=== PATIENT | female | born 1960 | race Caucasian/White ===

== ENCOUNTER 2020-04-19 22:33 | Emergency (ER) | payer OTHER ==
[2020-04-19 22:38] VITALS: BP 184/97; PULSE 84; RESP 18; TEMP 98.5
[2020-04-19] MEDS ORDERED: CEPHALEXIN 500 MG CAP PO STA (23:16)
[2020-04-19] MEDS ORDERED: SULFAMETHOX-TMP 800-160MG 1 EACH TAB PO STA (23:16)
--- NOTE | 2020-04-19 23:22 | ED ---
Skin/Abscess/FB HPI - General Chief complaint: Skin/Abscess/Foreign Body Stated complaint: RT thumb infection Time Seen by Provider: 04/19/20 22:49 Source: patient Mode of arrival: ambulatory Limitations: no limitations - History of Present Illness Initial comments: 60-year-old female presents emergency Department with a chief complaint of an abscess. Patient reports this started about 5 days ago which she believes it was after an abrasion to the thumb. Patient reports the lesion has gradually increased in size with pain is very. Patient reports today she was soaking in warm water noticed there was some weight pressure discharge. She denies any fevers or chills. Reports limited range of motion with flexion of the thumb due to swelling and pain. She reports ecchymosis and erythema. Reports the pain is 5/10 and exacerbated with movement. Sharp pain. alleviated rest. - Related Data Previous Rx's Medication Instructions Recorded Cephalexin [Keflex] 500 mg PO Q6HR #40 cap 04/19/20 Sulfamethox-Tmp 800-160Mg [Bactrim 1 each PO Q12HR #20 tab 04/19/20 Ds] Allergies Allergy/AdvReac Type Severity Reaction Status Date / Time No Known Allergies Allergy Verified 04/19/20 22:38 Review of Systems ROS Statement: Those systems with pertinent positive or pertinent negative responses have been documented in the HPI. ROS Other: All systems not noted in ROS Statement are negative. 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 No s/sx since History of Any Multi-Drug Resistant Organisms: None Reported Past Surgical History: Tonsillectomy Past Psychological History: No Psychological Hx Reported Smoking Status: Never smoker Past Alcohol Use History: None Reported Past Drug Use History: None Reported General Exam Limitations: no limitations General appearance: alert, in no apparent distress Head exam: Present: atraumatic, normocephalic, normal inspection Eye exam: Present: normal appearance, PERRL, EOMI Pupils: Present: normal accommodation ENT exam: Present: normal exam, normal oropharynx, mucous membranes moist Neck exam: Present: normal inspection, full ROM. Absent: tenderness Respiratory exam: Present: normal lung sounds bilaterally. Absent: respiratory distress Cardiovascular Exam: Present: regular rate, normal rhythm, normal heart sounds Extremities exam: Present: normal inspection (Abscess on the dorsal aspect of her right thumb. Swelling and ecchymosis and erythema.), tenderness (Tenderness at the lesion), normal capillary refill, other (Palpable ulnar and radial possible early.). Absent: full ROM (Limited range of motion of flexion of the right thumb due to pain), pedal edema, joint swelling, calf tenderness Back exam: Present: normal inspection, full ROM. Absent: tenderness, CVA tenderness (R), CVA tenderness (L) Neurological exam: Present: alert, oriented X3 Psychiatric exam: Present: normal affect, normal mood Skin exam: Present: warm, dry, intact, normal color Course Vital Signs 04/19/20 22:35 Temperature 98.5 F Pulse Rate 84 Respiratory 18 Rate Blood Pressure 184/97 O2 Sat by Pulse 100 Oximetry Procedures - Incision & Drainage Consent Obtained: verbal consent Indication: Abscess Site: other (Right thumb) Size (cm): 2 Anesthetic Used: lidocaine 1% Amount (mLs): 3 I&D Cleaning Method: Alcohol Wipe Sterile Field Used?: No Scalpel Used: #11 Needle Aspiration Performed?: No Irrigation Performed?: No I&D Drainage Obtained: Pus, Blood Culture Obtained?: No Complications: pain, bleeding Patient Tolerated Procedure: well, no complications Medical Decision Making - Medical Decision Making 60-year-old female presenting to the emergency department with a chief complaint of an abscess. On physical examination, there is an abscess on the dorsal aspect of the right thumb. I offered analgesia, she declined. Due to the location of the abscess and the severity, patient was offered inpatient admission, however she declined and wants to have it drained with an outpatient follow-up. Area was thoroughly cleaned an incision and drainage was performed. She did have improvement range of motion afterwards. She was started on Bactrim and Keflex. Will be discharged on Bactrim and Keflex. I advised her to follow with an clinic specialist. Return primers were thoroughly discussed the patient was an ascending agreeable. She was advised to soak it in warm water. Case discussed with Disposition Clinical Impression: Abscess of thumb, right Disposition: HOME SELF-CARE Condition: Stable Instructions (If sedation given, give patient instructions): Abscess (ED), Abscess Incision and Drainage (ED) Additional Instructions: Please return to the Emergency Department if symptoms worsen or any other concerns.. Follow with clinic specialist. Take prescribed medication as directed. Keep it in warm water. Prescriptions: Sulfamethox-Tmp 800-160Mg [Bactrim Ds] 1 each PO Q12HR #20 tab Cephalexin [Keflex] 500 mg PO Q6HR #40 cap Is patient prescribed a controlled substance at d/c from ED?: No Referrals: None,Stated [Primary Care Provider] - 1-2 days Time of Disposition: 23:22
== END 2020-04-19 23:40 | disposition home or self-care (01) ==
LOC: EC 22:33
DX: L02.511 Cutaneous abscess of right hand (principal)
CPT/HCPCS: 10060; 99282

== ENCOUNTER 2020-04-20 15:22 | Inpatient (IN) | payer OTHER ==
[2020-04-20] MEDS ORDERED: HYDROmorphone 1 MG/ML 1 ML SYRINGE IVP PRN (16:41)
[2020-04-20] MEDS ORDERED: HYDROmorphone 0.5 MG/0.5 ML SYRINGE IVP PRN (16:41)
[2020-04-20] MEDS ORDERED: SENNOSIDES-DOCUSATE SODIUM 1 EACH TAB PO PRN (16:41)
[2020-04-20] MEDS ORDERED: HYDROcodone/APAP 5-325MG 1 EACH TAB PO PRN (16:41)
[2020-04-20] MEDS ORDERED: HYDROmorphone 0.2 MG/1 ML SYRINGE IVP PRN (16:41)
[2020-04-20] MEDS ORDERED: ONDANSETRON 4 MG/2 ML VIAL IVP PRN (16:41)
[2020-04-20] MEDS ORDERED: VANCOMYCIN IV PER PHARMACY 1 EACH MISC MISCELLANE PRN ×2 (16:47→18:32)
[2020-04-20 17:24] LABS: Basophils # (A) 0.1 k/uL (0-0.2); Basophils % (A) 0 %; Eosinophils # (A) 0.2 k/uL (0-0.7); Eosinophils % (A) 2 %; HCT 37.1 % (34.0-46.0); HGB 12.1 gm/dL (11.4-16.0); Lymphocytes % (A) 18 %; MCH 30.7 pg (25.0-35.0); MCHC 32.6 g/dL (31.0-37.0); MCV 94.3 fL (80.0-100.0); Mean Platelet Volume 7.1; Monocytes # (A) 0.6 k/uL (0-1.0); Monocytes % (A) 5 %; Neutrophils # (A) 8.3 k/uL (1.3-7.7); Neutrophils % (A) 74 %; Platelet Count 335 k/uL (150-450); RBC 3.93 m/uL (3.80-5.40); RDW 13.5 % (11.5-15.5); WBC 11.2 k/uL (3.8-10.6)
[2020-04-20 17:30] LABS: Partial Thromboplastin Time 23.1 sec (22.0-30.0)
[2020-04-20 17:41] LABS: ALT 10 U/L (4-34); AST 15 U/L (14-36); African American GFR (CKD) 83 (>60 ml/min/1.73 sqM); Albumin/Globulin Ratio 1.3; Alkaline Phosphatase 95 U/L (38-126); Anion Gap 10 mmol/L; Blood Urea Nitrogen 17 mg/dL (7-17); C Reactive Protein 54.3 mg/L (<10.0); Calcium 9.6 mg/dL (8.4-10.2); Carbon Dioxide 20 mmol/L (22-30); Chloride 108 mmol/L (98-107); Glucose 110 mg/dL (74-99); Non-African American GFR(CKD) 72 (>60 ml/min/1.73 sqM); Potassium 3.6 mmol/L (3.5-5.1); Sodium 138 mmol/L (137-145); Total Bilirubin 0.5 mg/dL (0.2-1.3)
[2020-04-20 18:02] LABS: Erythrocyte Sedimentation Rate 32 mm/hr (0-20)
[2020-04-20] MEDS ORDERED: MELATONIN 3 MG TABLET PO PRN (18:30)
[2020-04-20] MEDS ORDERED: LORazepam 2 MG/ML INJ IV PRN (18:30)
[2020-04-20] MEDS ORDERED: NALOXONE 0.4 MG/ML 1 ML VIAL IV PRN (18:30)
[2020-04-20] MEDS ORDERED: IBUPROFEN 400 MG TAB PO PRN (18:30)
--- NOTE | 2020-04-20 18:43 | P.HPIM ---
History of Present Illness H&P Date: 04/20/20 Chief Complaint: hand pain Patient is a 60-year-old female with tobacco abuse, obesity who initially presented to the ER on 05/16/20 secondary to right thumb cellulitis. At that point in time they didn't I&D in the emergency department. I recommended that she be admitted, however she declined. [facility] and they directed her to the hospital for IV antibiotics. Laboratory analysis shows a mildly elevated white blood cell count is otherwise unremarkable. Patient seen and examined at bedside. Burned right thumb one week ago then started having swelling, also has kitten that bit into finger the same day. St arted getting irritated the next day, but liquid bandaid over the burn. Had increasing swelling and was doing salt water baths. 2 days ago it started getting worse with bad redness and swelling. Before having drainage in the ed was unable to approximate thumb to pinky. Started having pain into wrist. Intermittent tingling and pain in thumb responds to motrin/ excedrine. She reports that since leaving the ER yesterday she started having redness streaking up her right forearm. No fevers or chills, no nausea, no vomiting, no diarrhea. No loss of appetite. + congestion. Review of Systems Pertinent positives and negatives as discussed in HPI, a complete review of systems was performed and all other systems are negative. 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 No s/sx since History of Any Multi-Drug Resistant Organisms: None Reported Past Surgical History: Tonsillectomy Additional Past Surgical History / Comment(s): cyst removedright foot Past Psychological History: No Psychological Hx Reported Smoking Status: Current every day smoker (1 ppd since age 16 ) Past Alcohol Use History: Occasional (1-2 drinks monthly ) - Past Family History Father Family Medical History: Unable to Obtain Mother Family Medical History: Diabetes Mellitus Additional Family Medical History / Comment(s): heart disease, HTN, CKD Medications and Allergies Home Medications Medication Instructions Recorded Confirmed Type Cephalexin [Keflex] 500 mg PO QID 04/20/20 04/20/20 History Ibuprofen [Motrin Ib] 400 mg PO Q8H 04/20/20 04/20/20 History Sulfamethox-Tmp 800-160Mg [Bactrim 1 tab PO BID 04/20/20 04/20/20 History Ds] Allergies Allergy/AdvReac Type Severity Reaction Status Date / Time No Known Allergies Allergy Verified 04/19/20 22:38 Physical Exam Osteopathic Statement: *. No significant issues noted on an osteopathic structural exam other than those noted in the History and Physical/Consult. Vitals: Vital Signs Temp Pulse Resp BP Pulse Ox 04/20/20 17:10 98.1 F 86 16 156/93 98 Intake and Output 04/20/20 04/20/20 04/20/20 06:59 14:59 22:59 Intake Total 236 Balance 236 Intake: Oral 236 Other: # Voids 1 Weight 84 kg General: non toxic, no distress, appears at stated age Derm: warm, dry Head: atraumatic, normocephalic, symmetric Eyes: EOMI, no lid lag, anicteric sclera, pupils equal round reactive to light ENT: Nose and ears atraumatic, no thrush, no pharyngeal erythema Neck: No thyromegaly, no cervical lymphadenopathy, trachea midline, supple Mouth: no lip lesion, mucus membranes moist Cardiovascular: S1S2 reg, no murmur, positive posterior tibial pulse bilateral, no edema, capillary refill less than 2 seconds Lungs: clear to ascultation bilateral, no ronchi, no rales, no wheeze, no accessory muscle use Abdominal: soft, nontender to palpation, no guarding, no appreciable organomegaly, normal bowel sounds Ext: no gross muscle atrophy, muscle strength muscle strength 5 out of 5 in all 4 extremities, no contractures Neuro: CN II-XI grossly intact, light touch intact all 4 extremities, finger to nose within normal limits, Psych: Alert, oriented, appropriate affect Results CBC & Chem 7: 04/20/20 17:04 04/20/20 17:04 Labs: Abnormal Lab Results - Last 24 Hours (Table) 04/20/20 04/20/20 Range/Units 17:04 17:04 WBC 11.2 H (3.8-10.6) k/uL Neutrophils # 8.3 H (1.3-7.7) k/uL ESR 32 H (0-20) mm/hr Chloride 108 H (98-107) mmol/L Carbon Dioxide 20 L (22-30) mmol/L Glucose 110 H (74-99) mg/dL C-Reactive Protein 54.3 H (<10.0) mg/L Thrombosis Risk Factor Assmnt - DVT/VTE Prophylaxis DVT/VTE Prophylaxis: Pharmacologic Prophylaxis ordered - Choose All That Apply Each Factor Represents 1 point: Age 41-60 years, Minor surgery planned Thrombosis Risk Factor Assessment Total Risk Factor Score: 2 Thrombosis Risk Factor Assessment Level: Low Risk Assessment and Plan Assessment: Right thumb cellulitis with lymphangitis likely related to cat bite -Vanco, Unasyn -IV fluids -Await infectious disease recommendations -Blood cultures -Orthopedic recommendations -Check hemoglobin A1c Tobacco abuse -Cessation -Nicotine replacement Overweight with BMI of 29 -Structured weight loss Social stressors -Lack of medical insurance The patient is admitted with an anticipated greater than 2 midnight stay for evaluation of cellulitis with lymphangitis. Thank you for allowing us to participate in the care of this pleasant patient. Do not hesitate to contact us with questions. Someone can be reached from the [facility] hospitalist group all hours of the day at [phone] or via perfect serve.
[2020-04-20] MEDS: SODIUM CHLORIDE 0.9% 1,000 ML IV SCH (19:22)
[2020-04-20] MEDS ORDERED: VANCOMYCIN 1,500 MG in SODIUM CHLORIDE 0.9% 250 ML IVPB ONE (20:00)
[2020-04-20] MEDS: AMPICILLIN-SULBACTAM 3 GM in SODIUM CHLORIDE 0.9% 100 ML IVPB SCH (23:10)
[2020-04-21 03:32] LABS: INR 0.9 (<1.2); Prothrombin Time 9.7 sec (9.0-12.0)
[2020-04-21] MEDS: AMPICILLIN-SULBACTAM 3 GM in SODIUM CHLORIDE 0.9% 100 ML IVPB SCH ×3 (05:32→18:13)
[2020-04-21 07:11] LABS: ALT 8 U/L (4-34); AST 13 U/L (14-36); African American GFR (CKD) >90 (>60 ml/min/1.73 sqM); Albumin 3.3 g/dL (3.5-5.0); Albumin/Globulin Ratio 1.2; Alkaline Phosphatase 83 U/L (38-126); Anion Gap 4 mmol/L; Blood Urea Nitrogen 12 mg/dL (7-17); Calcium 9.1 mg/dL (8.4-10.2); Carbon Dioxide 23 mmol/L (22-30); Chloride 112 mmol/L (98-107); Globulin 2.7 g/dL; Glucose 96 mg/dL (74-99); Magnesium 1.9 mg/dL (1.6-2.3); Non-African American GFR(CKD) 84 (>60 ml/min/1.73 sqM); Potassium 4.1 mmol/L (3.5-5.1); Sodium 139 mmol/L (137-145); Total Bilirubin 0.6 mg/dL (0.2-1.3)
[2020-04-21] MEDS: VANCOMYCIN 1,500 MG in SODIUM CHLORIDE 0.9% 250 ML IVPB SCH ×2 (07:45→21:10)
[2020-04-21] MEDS: NICOTINE 21MG/24HR PATCH TRANSDERM SCH (07:46)
[2020-04-21] MEDS: ACETAMINOPHEN TAB 325 MG TAB PO PRN ×2 (07:54→21:16)
--- NOTE | 2020-04-21 08:41 | P.HPOR ---
History of Present Illness H&P Date: 04/21/20 Chief Complaint: Right thumb infection. This is a 60-year-old female who is seen in our office on 04/20/2020 with history of a small pimple-like lesion on her thumb which began a week ago. She states that she squeezed it and did express some pus from the area. She then put liquid Band-Aid over the area and went to work. Her thumb has gotten progressively worse over the past week. She was seen in the emergency department Friday evening, 04/19/2020. They advised the patient that she should be admitted for IV antibiotics and she declined at that time. She presented to our office on , 04/20/2020 with worsening of her symptoms. She denies recent fever or chills. She had begun noticing red streaking up her arm in the past 24 hours. She was placed on Bactrim and Keflex in the emergency department. 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 No s/sx since History of Any Multi-Drug Resistant Organisms: None Reported Past Surgical History: Tonsillectomy Additional Past Surgical History / Comment(s): cyst removedright foot Past Psychological History: No Psychological Hx Reported Smoking Status: Current every day smoker (1 ppd since age 16 ) Past Alcohol Use History: Occasional (1-2 drinks monthly ) - Past Family History Father Family Medical History: Unable to Obtain Mother Family Medical History: Diabetes Mellitus Additional Family Medical History / Comment(s): heart disease, HTN, CKD Medications and Allergies Home Medications Medication Instructions Recorded Confirmed Type Cephalexin [Keflex] 500 mg PO QID 04/20/20 04/20/20 History Ibuprofen [Motrin Ib] 400 mg PO Q8H 04/20/20 04/20/20 History Sulfamethox-Tmp 800-160Mg [Bactrim 1 tab PO BID 04/20/20 04/20/20 History Ds] Allergies Allergy/AdvReac Type Severity Reaction Status Date / Time No Known Allergies Allergy Verified 04/19/20 22:38 Physical Examination This is a 60-year-old female in no acute distress. She is alert and oriented 3. Exam of the right upper extremity reveals a large abscess to the dorsal aspect of the right thumb. There is active purulent drainage from the wound. She has limited motion of the thumb secondary to pain and swelling. There is some erythema streaking up the arm. She has fairly good wrist, elbow and shoulder motion without difficulty or pain. Neurovascular status the upper extremity is intact. Results X-rays of the hand taken in the office show no acute fracture or bony abnormality. No bony erosion noted. - Labs Labs: Abnormal Lab Results - Last 24 Hours (Table) 04/20/20 04/20/20 04/21/20 Range/Units 17:04 17: 06:27 WBC 11.2 H (3.8-10.6) k/uL Neutrophils # 8.3 H (1.3-7.7) k/uL ESR 32 H (0-20) mm/hr Chloride 108 H 112 H (98-107) mmol/L Carbon Dioxide 20 L (22-30) mmol/L Glucose 110 H (74-99) mg/dL AST 13 L (14-36) U/L C-Reactive Protein 54.3 H (<10.0) mg/L Total Protein 6.0 L (6.3-8.2) g/dL Albumin 3.3 L (3.5-5.0) g/dL H & H 04/20/20 Range/Units 17:04 Hgb 12.1 (11.4-16.0) gm/dL Hct 37.1 (34.0-46.0) % Coagulation 04/20/20 Range/Units 17:04 INR 0.9 (<1.2) Result Diagrams: 04/20/20 17:04/21/20 06:27 Assessment and Plan (1) Acute lymphangitis of right upper extremity Current Visit: Yes Status: Acute Code(s): L03.123 - ACUTE LYMPHANGITIS OF RIGHT UPPER LIMB SNOMED Code(s): 7954225 (2) Abscess of right thumb Current Visit: Yes Status: Acute Code(s): L02.511 - CUTANEOUS ABSCESS OF RIGHT HAND SNOMED Code(s): 32721597687656986 Plan: The clinical and x-ray findings are discussed with the patient. She is strongly encouraged to be admitted to the hospital for IV antibiotics and surgical debridement of the wound. The patient was hesitant secondary to her lack of health insurance but eventually did consent to inpatient admission. We are planning irrigation and debridement today and we'll take deep cultures. I've consult it infectious disease for antibiotic and wound management. She most likely will need wound care center appointments weekly postoperatively.
[2020-04-21 08:55] LABS: HCT 34.2 % (37.2-46.3); HGB 11.1 g/dL (12.0-15.0); MCH 31.4 pg (27.0-32.0); MCHC 32.5 g/dL (32.0-37.0); MCV 96.9 fL (80.0-97.0); Platelet Count 279 X 10*3/uL (140-440); RBC 3.53 X 10*6/uL (4.10-5.20); RDW 13.7 % (11.5-14.5); WBC 9.16 X 10*3/uL (4.50-10.00)
[2020-04-21] MEDS: SODIUM CHLORIDE 0.9% 1,000 ML IV SCH ×2 (10:45→21:10)
[2020-04-21] MEDS ORDERED: LACTATED RINGERS 1,000 ML IV ONE (10:57)
[2020-04-21] MEDS ORDERED: ONDANSETRON 4 MG/2 ML VIAL IVP ONE (10:58)
[2020-04-21] MEDS ORDERED: DEXAMETHASONE SOD PHOSPHATE 4 MG/ML 1 ML VIAL IVP ONE (10:58)
[2020-04-21] MEDS ORDERED: fentaNYL (PF) 50 MCG/ML 2 ML AMP ONE (11:30)
[2020-04-21] MEDS ORDERED: MIDAZOLAM 2 MG/2 ML VIAL ONE (11:30)
[2020-04-21] MEDS ORDERED: PROPOFOL 10 MG/ML 20 ML VIAL IV ONE (11:30)
[2020-04-21] MEDS ORDERED: LIDOCAINE 1% INJ 10MG/ML (20 ML MDV) ONE (11:30)
[2020-04-21] MEDS ORDERED: TEMAZEPAM 15 MG CAP PO PRN (12:31)
[2020-04-21] MEDS ORDERED: diphenhydrAMINE 25 MG CAP PO PRN (12:31)
[2020-04-21] MEDS: LACTATED RINGERS 1,000 ML IV SCH ×2 (14:41→21:02)
[2020-04-21 15:22] LABS: Hemoglobin A1C 5.5 % (4.0-6.0)
--- NOTE | 2020-04-21 16:10 | P.PN ---
Subjective Progress Note Date: 04/21/20 Principal diagnosis: right thumb infection Patient is a 60-year-old female with tobacco abuse, obesity who initially presented to the ER on 05/16/20 secondary to right thumb cellulitis. At that point in time they didn't I&D in the emergency department. I recommended that she be admitted, however she declined. [facility] today and they directed her to the hospital for IV antibiotics. Laboratory analysis shows a mildly elevated white blood cell count is otherwise unremarkable. She was started on Unasyn. She underwent operative I&D 04/21/20. Patient seen and examined at bedside. She denies any chest pain, shortness of breath, nausea, or diarrhea. She is having some throbbing and tingling in her right hand which has just been dressed. She has not wanted a nicotine patch or gum at this point in time but knows it is available. General: non toxic, no distress, appears at stated age Derm: warm, dry Head: atraumatic, normocephalic, symmetric Eyes: EOMI, no lid lag, anicteric sclera Mouth: no lip lesion, mucus membranes moist, poor dentition Cardiovascular: S1S2 reg, no murmur, positive posterior tibial pulse bilateral, Lungs: CTA bilateral, no rhonchi, no rales , no accessory muscle use Abdominal: soft, nontender to palpation, no guarding, no appreciable organomegaly Ext: no gross muscle atrophy, no edema, no contractures, dressing in place over right thumb, erythematous tracking along veins and right forearm has resolved. Neuro: CN II-XI grossly intact, no focal neuro deficits Psych: Alert, oriented, appropriate affect Right thumb cellulitis with lymphangitis likely related to cat bite, likely polymicrobial infection - s/p operative I and D -Vanco, Unasyn -IV fluids -Await infectious disease recommendations -Blood cultures pending -Orthopedic recommendations -hemoglobin A1c 5.5 Tobacco abuse -Cessation -Nicotine replacement Overweight with BMI of 29 -Structured weight loss Social stressors -Lack of medical insurance Thank you for allowing us to participate in the care of this pleasant patient. Do not hesitate to contact us with questions. Someone can be reached from the [facility] hospitalist group all hours of the day at [phone] or via perfect serve. Objective - Vital Signs Vital signs: Vital Signs Temp 98.3 F 04/21/20 14:18 Pulse 77 04/21/20 14:42 Resp 16 04/21/20 14:42 BP 137/80 04/21/20 14:42 Pulse Ox 95 04/21/20 14:18 Intake & Output 04/20/20 04/21/20 04/21/20 18:59 06:59 18:59 Intake Total 236 0 736 Output Total 10 Balance 236 0 726 Weight 84 kg Intake: IV 500 Oral 236 0 236 Output: Estimated Blood Loss 10 Other: Voiding Method Toilet # Voids 1 1 - Labs CBC & Chem 7: 04/21/20 06:27 04/21/20 06:27 Labs: Abnormal Lab Results - Last 24 Hours (Table) 04/20/20 04/20/20 04/21/20 Range/Units 17:04 17:04 06:27 WBC 11.2 H (3.8-10.6) k/uL RBC 3.53 L (4.10-5.20) X 10*6/uL Hgb 11.1 L (12.0-15.0) g/dL Hct 34.2 L (37.2-46.3) % Neutrophils # 8.3 H (1.3-7.7) k/uL ESR 32 H (0-20) mm/hr Chloride 108 H (98-107) mmol/L Carbon Dioxide 20 L (22-30) mmol/L Glucose 110 H (74-99) mg/dL AST (14-36) U/L C-Reactive Protein 54.3 H (<10.0) mg/L Total Protein (6.3-8.2) g/dL Albumin (3.5-5.0) g/dL 04/21/20 Range/Units 06:27 WBC (3.8-10.6) k/uL RBC (4.10-5.20) X 10*6/uL Hgb (12.0-15.0) g/dL Hct (37.2-46.3) % Neutrophils # (1.3-7.7) k/uL ESR (0-20) mm/hr Chloride 112 H (98-107) mmol/L Carbon Dioxide (22-30) mmol/L Glucose (74-99) mg/dL AST 13 L (14-36) U/L C-Reactive Protein (<10.0) mg/L Total Protein 6.0 L (6.3-8.2) g/dL Albumin 3.3 L (3.5-5.0) g/dL
--- NOTE | 2020-04-21 21:32 | CONS ---
CONSULTATION DATE OF SERVICE: 04/21/2020 REASON FOR CONSULTATION: Right thumb abscess. HISTORY OF PRESENT ILLNESS: The patient is a 60-year-old female who apparently started noticed having pain, swelling and redness to right thumb area a few days ago. The patient denies having any history of any trauma or cut to the area. The patient became more swollen red and painful. The patient described the pain to be more of a throbbing intensity almost 7 to 8 out of 10. No radiation. The patient was seen in the ER on 04/19/2020 in this patient who is status post I and D of the right thumb and the patient did not have any cultures done by the ER physician. Patient subsequently [facility]. Patient was evaluated by Dr. Moraes and the patient was directed to the hospital for admission and IV drainage and IV antibiotic therapy. The patient was started on Unasyn and vancomycin. Infectious Disease was consulted. The patient was taken to the OR this morning and is status post I and D of the right thumb abscess. Culture has been obtained which is currently pending. REVIEW OF SYSTEMS: Positive points have been mentioned in HPI. Rest of systems are negative. PAST MEDICAL HISTORY: Significant for but no other medical illnesses. PAST SURGICAL HISTORY: Tonsillectomy, cyst removed from the right foot. SOCIAL HISTORY: Current everyday smoker. Drinks 1-2 drinks monthly. Denies any IV drug use. FAMILY HISTORY: Mother history of diabetes mellitus. ALLERGIES: No known drug allergies. MEDICATIONS: The patient is currently on Tylenol, [place], Unasyn, Benadryl, Dilaudid, Motrin and Ativan, melatonin, vancomycin, pharmacy to dose, nicotine patch, Zofran, Restoril. PHYSICAL EXAMINATION: Blood pressure 137/80 with a pulse of 77. Temperature 98.3. She is 95% on room air. General description is a middle-aged female lying in bed in no distress. No tachypnea or accessory muscles of respiration use. HEENT: Examination shows slight pallor. No scleral icterus. Oral mucous membranes dry. NECK: Trachea central. No thyromegaly. LUNGS: Unlabored breathing. Clear to auscultation anteriorly. HEART S1, S2. Regular rate and rhythm. ABDOMEN: Soft. No tenderness. Right thumb is currently dressed up. No obvious drainage on the dressing. EXTREMITIES: No edema of the feet. LABS: Hemoglobin is 11.8, white count 11.2, creatinine 0.7. Electrolytes normal. Cultures currently pending. CRP 54.3. DIAGNOSTIC IMPRESSION AND PLAN: Patient with right thumb abscess in this patient who is status post drainage of the abscess. Cultures are currently pending. We will need to cover for any gram-positive with likely pathogen less likely Gram-negative infection. PLAN: 1. Vancomycin, pharmacy to dose target of 15, to continue. 2. Will wait for the culture to finalize to determine discharge antibiotics. 3. Continue supportive care. MMODL / IJN: [id number] /
[2020-04-22] MEDS: AMPICILLIN-SULBACTAM 3 GM in SODIUM CHLORIDE 0.9% 100 ML IVPB SCH ×4 (00:06→16:57)
--- NOTE | 2020-04-22 08:46 | P.PN ---
Subjective Progress Note Date: 04/22/20 Principal diagnosis: Status post right thumb I&D This is a 60 year-old female post right thumb I&D. This is post-op day 1. The patient was evaluated at the bedside today. The patient denies nausea, vomiting, abdominal pain, shortness of breath, and chest pain this morning. She states her pain is controlled at this time. She is currently receiving vanco mycin and Unasyn. Intraoperative cultures are pending at this time. Objective - Vital Signs Vital signs: Vital Signs Temp 98.1 F 04/22/20 08:00 Pulse 67 04/22/20 08:00 Resp 18 04/22/20 08:00 BP 162/80 04/22/20 08:00 Pulse Ox 98 04/22/20 08:00 Intake & Output 04/21/20 04/22/20 04/22/20 18:59 06:59 18:59 Intake Total 972 Output Total 10 Balance 962 Intake: IV 500 Oral 472 Output: Estimated Blood Loss 10 Other: Voiding Method Toilet # Voids 1 2 - Exam The patient does not appear in acute distress. Alert and orientated x3. Dressing is clean, dry, and intact. Good finger motion without difficulty. Sensation and circulatory status is intact. - Labs CBC & Chem 7: 04/21/20 06:27 04/21/20 06:27 Labs: Abnormal Lab Results - Last 24 Hours (Table) 04/21/20 Range/Units 06:27 RBC 3.53 L (4.10-5.20) X 10*6/uL Hgb 11.1 L (12.0-15.0) g/dL Hct 34.2 L (37.2-46.3) % Microbiology - Last 24 Hours (Table) 04/21/20 12:06 Gram Stain - Preliminary Finger - Right First Wound Culture - Preliminary 04/21/20 12:06 Gram Stain - Preliminary Finger - Right First Wound Culture - Preliminary 04/20/20 17:04 Blood Culture - Preliminary Blood No Growth after 24 hours 04/21/20 12:06 Anaerobic Culture - Preliminary Finger - Right First 04/21/20 12:06 Anaerobic Culture - Preliminary Finger - Right First Assessment and Plan (1) Status post incision and drainage Current Visit: Yes Status: Acute Code(s): Z98.890 - OTHER SPECIFIED POSTPROCEDURAL STATES SNOMED Code(s): 420937667 (2) Abscess of right thumb Current Visit: Yes Status: Acute Code(s): L02.511 - CUTANEOUS ABSCESS OF RIGHT HAND SNOMED Code(s): 32980512757173276 (3) Acute lymphangitis of right upper extremity Current Visit: Yes Status: Acute Code(s): L03.123 - ACUTE LYMPHANGITIS OF RIGHT UPPER LIMB SNOMED Code(s): 6503357 Plan: 1. Continue pain control 2. Continue antibiotics per infectious disease, cultures pending 3. Case management consulted for antibiotic and wound care arrangement upon discharge. 4. Anticipate discharge home once cultures are finalized and antibiotics have been determined.
[2020-04-22 09:28] LABS: African American GFR (CKD) >90 (>60 ml/min/1.73 sqM); Anion Gap 8 mmol/L; Blood Urea Nitrogen 13 mg/dL (7-17); Calcium 9.3 mg/dL (8.4-10.2); Carbon Dioxide 22 mmol/L (22-30); Chloride 109 mmol/L (98-107); Glucose 102 mg/dL (74-99); Non-African American GFR(CKD) >90 (>60 ml/min/1.73 sqM); Potassium 4.3 mmol/L (3.5-5.1); Sodium 139 mmol/L (137-145)
[2020-04-22] MEDS: VANCOMYCIN 1,500 MG in SODIUM CHLORIDE 0.9% 250 ML IVPB SCH ×2 (09:42→21:10)
[2020-04-22] MEDS: ACETAMINOPHEN TAB 325 MG TAB PO PRN ×2 (09:42→21:10)
--- NOTE | 2020-04-22 10:38 | P.PN ---
Subjective Progress Note Date: 04/22/20 Principal diagnosis: right thumb infection Patient is a 60-year-old female with tobacco abuse, obesity who initially presented to the ER on 05/16/20 secondary to right thumb cellulitis. At that point in time they didn't I&D in the emergency department. I recommended that she be admitted, however she declined. [facility] and they directed her to the hospital for IV antibiotics. Laboratory analysis shows a mildly elevated white blood cell count is otherwise unremarkable. She was started on Unasyn. She underwent operative I&D 04/21/20. Patient seen and examined at bedside. Doing well, no complaints currently. Thumb is throbbing but no pain, no nausea, no vomiting, no diarrhea. General: non toxic, no distress, appears at stated age Derm: warm, dry Head: atraumatic, normocephalic, symmetric Eyes: EOMI, no lid lag, anicteric sclera Mouth: no lip lesion, mucus membranes moist, poor dentition Cardiovascular: S1S2 reg, no murmur, positive posterior tibial pulse bilateral, Lungs:Decreased bs bilateral, no rhonchi, no rales , no accessory muscle use Abdominal: soft, nontender to palpation, no guarding, no appreciable organomegaly Ext: no gross muscle atrophy, no edema, no contractures, dressing in place over right thumb Neuro: CN II-XI grossly intact, no focal neuro deficits Psych: Alert, oriented, appropriate affect Right thumb cellulitis with lymphangitis likely related to cat bite, likely polymicrobial infection - presumptive staph on cultures - s/p operative I and D - Vanco, Unasyn - IV fluids - infectious disease recommendations appreciated -Blood cultures negative to date -Orthopedic recommendations -hemoglobin A1c 5.5 Tobacco abuse -Cessation -Nicotine replacement Overweight with BMI of 29 -Structured weight loss Social stressors -Lack of medical insurance Thank you for allowing us to participate in the care of this pleasant patient. Do not hesitate to contact us with questions. Someone can be reached from the [facility] hospitalist group all hours of the day at [phone] or via perfect serve. Objective - Vital Signs Vital signs: Vital Signs Temp 98.1 F 04/22/20 08:00 Pulse 67 04/22/20 08:00 Resp 18 04/22/20 08:00 BP 162/80 04/22/20 08:00 Pulse Ox 98 03/06/21 08:00 Intake & Output 04/21/20 04/22/20 04/22/20 18:59 06:59 18:59 Intake Total 972 Output Total 10 Balance 962 Intake: IV 500 Oral 472 Output: Estimated Blood Loss 10 Other: Voiding Method Toilet # Voids 1 2 - Labs CBC & Chem 7: 04/21/20 06:27 04/22/20 06:48 Labs: Abnormal Lab Results - Last 24 Hours (Table) 04/22/20 Range/Units 06:48 Chloride 109 H (98-107) mmol/L Glucose 102 H (74-99) mg/dL Microbiology - Last 24 Hours (Table) 04/21/20 12:06 Gram Stain - Preliminary Finger - Right First Wound Culture - Preliminary Presumptive Staph aureus 04/21/20 12:06 Gram Stain - Preliminary Finger - Right First Wound Culture - Preliminary Presumptive Staph aureus 04/20/20 17:04 Blood Culture - Preliminary Blood No Growth after 24 hours 04/21/20 12:06 Anaerobic Culture - Preliminary Finger - Right First 04/21/20 12:06 Anaerobic Culture - Preliminary Finger - Right First
[2020-04-22 12:10] LABS: HCT 34.2 % (37.2-46.3); MCHC 32.2 g/dL (32.0-37.0); MCV 96.3 fL (80.0-97.0); Mean Platelet Volume 10.3 fL (9.5-12.2); Platelet Count 316 X 10*3/uL (140-440); RBC 3.55 X 10*6/uL (4.10-5.20); RDW 13.4 % (11.5-14.5); WBC 10.38 X 10*3/uL (4.50-10.00)
[2020-04-22] MEDS: LACTATED RINGERS 1,000 ML IV SCH ×2 (12:26→16:51)
[2020-04-22] MEDS: NICOTINE 21MG/24HR PATCH TRANSDERM SCH (12:26)
[2020-04-22] MEDS: SODIUM CHLORIDE 0.9% 1,000 ML IV SCH (16:51)
[2020-04-23] MEDS: AMPICILLIN-SULBACTAM 3 GM in SODIUM CHLORIDE 0.9% 100 ML IVPB SCH ×3 (00:33→11:08)
[2020-04-23] MEDS: ACETAMINOPHEN TAB 325 MG TAB PO PRN (05:42)
[2020-04-23] MEDS ORDERED: VANCOMYCIN TROUGH DUE 1 EACH MISC MISCELLANE ONE (08:00)
[2020-04-23] MEDS: NICOTINE 21MG/24HR PATCH TRANSDERM SCH (08:32)
[2020-04-23] MEDS: VANCOMYCIN 1,500 MG in SODIUM CHLORIDE 0.9% 250 ML IVPB SCH (08:39)
--- NOTE | 2020-04-23 09:31 | P.PN ---
Subjective Progress Note Date: 04/23/20 Principal diagnosis: Status post right thumb I&D This is a 60 year-old female post right thumb I&D. This is post-op day 2. The patient was evaluated at the bedside today. The patient denies nausea, vomiting, abdominal pain, shortness of breath, and chest pain this morning. She states her pain is controlled at this time. She is currently receiving Vanco mycin and Unasyn. Intraoperative cultures reveal presumptive staph aureus. Objective - Vital Signs Vital signs: Vital Signs Temp 97.7 F 04/23/20 08:30 Pulse 65 04/23/20 08:30 Resp 18 04/23/20 08:30 BP 179/84 04/23/20 08:30 Pulse Ox 99 04/23/20 08:30 Intake & Output 04/22/20 04/23/20 04/23/20 18:59 06:59 18:59 Other: Voiding Method Toilet # Voids 4 2 1 - Exam The patient does not appear in acute distress. Alert and orientated x3. Operative dressing removed. Packing removed. Wound bed looks clean. No purulence noted. Wound repacked and new dressing applied. Hand swelling has improved. Good finger motion without difficulty. Sensation and circulatory status is intact. - Labs CBC & Chem 7: 04/22/20 06:48 04/22/20 06:48 Labs: Abnormal Lab Results - Last 24 Hours (Table) 04/22/20 04/22/20 Range/Units 06:48 06:48 WBC 10.38 H (4.50-10.00) X 10*3/uL RBC 3.55 L (4.10-5.20) X 10*6/uL Hgb 11.0 L (12.0-15.0) g/dL Hct 34.2 L (37.2-46.3) % Chloride 109 H (98-107) mmol/L Glucose 102 H (74-99) mg/dL Microbiology - Last 24 Hours (Table) 04/20/20 17:04 Blood Culture - Preliminary Blood No Growth after 48 hours 04/21/20 12:06 Gram Stain - Preliminary Finger - Right First Wound Culture - Preliminary Presumptive Staph aureus 04/21/20 12:06 Gram Stain - Preliminary Finger - Right First Wound Culture - Preliminary Presumptive Staph aureus Assessment and Plan (1) Status post incision and drainage Current Visit: Yes Status: Acute Code(s): Z98.890 - OTHER SPECIFIED POSTPROCEDURAL STATES SNOMED Code(s): 171343390 (2) Abscess of right thumb Current Visit: Yes Status: Acute Code(s): L02.511 - CUTANEOUS ABSCESS OF RIGHT HAND SNOMED Code(s): 91416840416136645 (3) Acute lymphangitis of right upper extremity Current Visit: Yes Status: Acute Code(s): L03.123 - ACUTE LYMPHANGITIS OF RIGHT UPPER LIMB SNOMED Code(s): 6094033 Plan: 1. Continue pain control 2. Continue antibiotics per infectious disease, final cultures pending 3. Consult wound care for dressing and wound care recommendations. 4. Case management consulted for antibiotic and wound care arrangement upon discharge. 5. Anticipate discharge home once cultures are finalized and antibiotics have been determined.
[2020-04-23] MEDS: NICOTINE POLACRILEX 2 MG GUM BUCCAL PRN ×2 (11:07→18:29)
--- NOTE | 2020-04-23 13:37 | P.PN ---
Subjective Progress Note Date: 04/23/20 (delayed charting seen at 1100) Principal diagnosis: right thumb infection Patient is a 60-year-old female with tobacco abuse, obesity who initially presented to the ER on 05/16/20 secondary to right thumb cellulitis. At that point in time they didn't I&D in the emergency department. I recommended that she be admitted, however she declined. [facility] and they directed her to the hospital for IV antibiotics. Laboratory analysis shows a mildly elevated white blood cell count is otherwise unremarkable. She was started on Unasyn. She underwent operative I&D 04/21/20. Patient seen and examined at bedside. Feeling slightly anxious about having to move her room. Denies any overt chest pain or shortness of breath. Mild hea dache. No nausea vomiting or diarrhea. General: non toxic, no distress, appears at stated age Derm: warm, dry Head: atraumatic, normocephalic, symmetric Eyes: EOMI, no lid lag, anicteric sclera Mouth: no lip lesion, mucus membranes moist, poor dentition Cardiovascular: S1S2 reg, no murmur, positive posterior tibial pulse bilateral, Lungs:Decreased bs bilateral, no rhonchi, no rales , no accessory muscle use Abdominal: soft, nontender to palpation, no guarding, no appreciable organomegaly Ext: no gross muscle atrophy, no edema, no contractures, dressing in place over right thumb Neuro: CN II-XI grossly intact, no focal neuro deficits Psych: Alert, oriented appears anxious Methicillin sensitive staph aureus Right thumb abscess with cellulitis with lymphangitis - s/p operative I and D - Vanco, Unasyn discontinued and transitioned to Keflex based on culture data - IV fluids - infectious disease recommendations appreciated -Blood cultures negative to date -Orthopedic recommendations -hemoglobin A1c 5.5 Tobacco abuse -Cessation -Nicotine replacement Overweight with BMI of 29 -Structured weight loss Social stressors -Lack of medical insurance Anticipate home in a.m. once evaluated by infectious disease. Thank you for allowing us to participate in the care of this pleasant patient. Do not hesitate to contact us with questions. Someone can be reached from the [facility] hospitalist group all hours of the day at [phone] or via perfect serve. Objective - Vital Signs Vital signs: Vital Signs Temp 97.7 F 04/23/20 08:30 Pulse 65 04/23/20 08:30 Resp 18 04/23/20 08:30 BP 179/84 04/23/20 08:30 Pulse Ox 99 04/23/20 08:30 Intake & Output 04/22/20 04/23/20 04/23/20 18:59 06:59 18:59 Other: Voiding Method Toilet # Voids 4 2 1 - Labs CBC & Chem 7: 04/22/20 06:48 04/22/20 06:48 Labs: Microbiology - Last 24 Hours (Table) 04/21/20 12:06 Gram Stain - Final Finger - Right First Wound Culture - Final Staphylococcus aureus 04/21/20 12:06 Gram Stain - Final Finger - Right First Wound Culture - Final Staphylococcus aureus 04/20/20 17:04 Blood Culture - Preliminary Blood No Growth after 48 hours
[2020-04-23] MEDS: HYDROcodone/APAP 5-325MG 1 EACH TAB PO PRN ×2 (14:06→20:45)
--- NOTE | 2020-04-23 23:33 | PN ---
PROGRESS NOTE DATE OF SERVICE: 04/23/2020 REASON FOR FOLLOWUP: Right thumb abscess. INTERVAL HISTORY: The patient is currently afebrile. The patient is breathing comfortably. Overall pain and discomfort to the right thumb has decreased. Denies having any chest pain, shortness of breath or cough. No abdominal pain. No diarrhea. PHYSICAL EXAMINATION: Her blood pressure is 155/82 with a pulse of 71, temperature 98.2. She is 98% on room air. General description is a middle-aged female lying in bed in no distress. Respiratory system: Unlabored breathing, clear to auscultation anteriorly. Heart S1, S2. Regular rate and rhythm. Abdomen soft, no tenderness. Right thumb is currently dressed. No drainage on the dressing. LABS: Wound culture finalized with MSSA. DIAGNOSTIC IMPRESSION AND PLAN: Patient with right thumb abscess MSSA, status post drainage. Culture has been finalized. Vanco discontinued. Cefazolin dose adjusted to 2 g q.8 hours with a plan to finish therapy with oral Keflex 500 mg p.o. q.6 hours for 10 days. Local wound care per Surgery. Continue supportive care. MMODL / IJN: [id number] /
--- NOTE | 2020-04-24 08:02 | P.PN ---
Subjective Progress Note Date: 04/24/20 Principal diagnosis: right thumb infection Patient is a 60-year-old female with tobacco abuse, obesity who initially presented to the ER on 05/16/20 secondary to right thumb cellulitis. At that point in time they didn't I&D in the emergency department. I recommended that she be admitted, however she declined. [facility] and they directed her to the hospital for IV antibiotics. Laboratory analysis shows a mildly elevated white blood cell count is otherwise unremarkable. She was started on Unasyn. She underwent operative I&D 04/21/20. Cultures came back with MSSA sensitive to keflex. Patient seen and examined at bedside. Feeling slightly anxious about having to move her room. Denies any overt chest pain or shortness of breath. Mild headache. No nausea vomiting or diarrhea. General: non toxic, no distress, appears at stated age Derm: warm, dry Head: atraumatic, normocephalic, symmetric Eyes: EOMI, no lid lag, anicteric sclera Mouth: no lip lesion, mucus membranes moist, poor dentition Cardiovascular: S1S2 reg, no murmur, positive posterior tibial pulse bilateral, Lungs:Decreased bs bilateral, no rhonchi, no rales , no accessory muscle use Ext: no gross muscle atrophy, no edema, no contractures, dressing in place over right thumb Neuro: CN II-XI grossly intact, no focal neuro deficits Psych: Alert, oriented appears anxious Methicillin sensitive staph aureus right thumb abscess with cellulitis with lym phangitis - s/p operative I and D -Keflex for 10 days at home, already has ABX filled from when she was discharged from ED- has them at home still. - infectious disease recommendations appreciated -Blood cultures negative to date -Orthopedic recommendations -hemoglobin A1c 5.5 - needs minimal follow-up appointment due to lack of insurance. Elevated blood pressure without diagnosis for HTN - likely due to pain, anxiety - follow as outpatient instructions placed on discharge tab Tobacco abuse -Cessation -Nicotine replacement Overweight with BMI of 29 -Structured weight loss Social stressors -Lack of medical insurance Medically optimized to discharge. Objective - Vital Signs Vital signs: Vital Signs Temp 97.5 F L 04/24/20 00:26 Pulse 71 04/24/20 00:26 Resp 18 04/24/20 00:26 BP 172/67 04/24/20 00:26 Pulse Ox 96 04/24/20 00:26 Intake & Output 04/23/20 04/24/20 04/24/20 18:59 06:59 18:59 Other: # Voids 2 1 - Labs CBC & Chem 7: 04/22/20 06:48 04/22/20 06:48 Labs: Microbiology - Last 24 Hours (Table) 04/20/20 17:04 Blood Culture - Preliminary Blood No Growth after 72 hours 04/21/20 12:06 Anaerobic Culture - Preliminary Finger - Right First 04/21/20 12:06 Anaerobic Culture - Preliminary Finger - Right First 04/21/20 12:06 Gram Stain - Final Finger - Right First Wound Culture - Final Staphylococcus aureus 04/21/20 12:06 Gram Stain - Final Finger - Right First Wound Culture - Final Staphylococcus aureus
[2020-04-24] MEDS: NICOTINE 21MG/24HR PATCH TRANSDERM SCH (08:18)
[2020-04-24] MEDS: HYDROcodone/APAP 5-325MG 1 EACH TAB PO PRN (08:19)
[2020-04-24 08:32] LABS: Basophils # (A) 0.1 k/uL (0-0.2); Basophils % (A) 1 %; Eosinophils # (A) 0.5 k/uL (0-0.7); Eosinophils % (A) 7 %; HCT 37.5 % (34.0-46.0); HGB 12.1 gm/dL (11.4-16.0); Lymphocytes # (A) 2.3 k/uL (1.0-4.8); Lymphocytes % (A) 32 %; MCH 31.1 pg (25.0-35.0); MCHC 32.3 g/dL (31.0-37.0); MCV 96.3 fL (80.0-100.0); Mean Platelet Volume 7.2; Monocytes # (A) 0.4 k/uL (0-1.0); Monocytes % (A) 5 %; Neutrophils # (A) 3.9 k/uL (1.3-7.7); Neutrophils % (A) 53 %; Platelet Count 311 k/uL (150-450); RDW 12.9 % (11.5-15.5); WBC 7.3 k/uL (3.8-10.6)
[2020-04-24 08:56] LABS: Calcium 9.4 mg/dL (8.4-10.2); Potassium 4.3 mmol/L (3.5-5.1)
[2020-04-24 09:22] VITALS: BP 172/78; PULSE 54; RESP 14; TEMP 97.7
--- NOTE | 2020-04-24 10:04 | P.DS ---
Providers Date of admission: 04/20/20 16:44 Expected date of discharge: 04/24/20 Attending physician: Jorge Moraes Consults: 04/20/20 16:41 Consult Physician Routine Consulting Provider: Miya Neely Consult Reason/Comments: Medical clearance. Right thumb abscess. Do you want consulting provider notified?: Yes 04/20/20 16:50 Consult Physician Routine Consulting Provider: Macr Coto Consult Reason/Comments: right thumb abscess Do you want consulting provider notified?: Yes Primary care physician: Stated None - Discharge Diagnosis(es) (1) Acute lymphangitis of right upper extremity Current Visit: Yes Status: Acute (2) Abscess of right thumb Current Visit: Yes Status: Acute Hospital Course: This is a 60-year-old female who is seen in our office on 04/20/2020 with history of a small pimple-like lesion on her thumb which began a week ago. She states that she squeezed it and did express some pus from the area. She then put liquid Band-Aid over the area and went to work. Her thumb has gotten progressively worse over the past week. She was seen in the emergency department Friday evening, 04/19/2020. They advised the patient that she should be admitted for IV antibiotics and she declined at that time. She presented to our office on , 04/20/2020 with worsening of her symptoms. She denies recent fever or chills. She had begun noticing red streaking up her arm in the past 24 hours. She was placed on Bactrim and Keflex in the emergency department. She underwent incision and drainage of the right thumb on 04/21/2020. She has had wound packing over the weekend. She has been evaluated by infectious disease. She is doing well from an orthopedic standpoint. She may be discharged to home today if cleared with internal medicine, infectious disease and wound center. Dr. Coto will manage antibiotics. Plan - Discharge Summary Discharge Rx Participant: Yes New Discharge Prescriptions: New HYDROcodone/APAP 5-325MG [[place] 5] 1 each PO Q6HR PRN #28 tab PRN Reason: Pain Continue Ibuprofen [Motrin Ib] 400 mg PO Q8H Cephalexin [Keflex] 500 mg PO QID Discontinued Sulfamethox-Tmp 800-160Mg [Bactrim Ds] 1 tab PO BID Discharge Medication List Cephalexin [Keflex] 500 mg PO QID 04/20/20 [History] Ibuprofen [Motrin Ib] 400 mg PO Q8H 04/20/20 [History] HYDROcodone/APAP 5-325MG [[place] 5] 1 each PO Q6HR PRN #28 tab 04/24/20 [Rx] Follow up Appointment(s)/Referral(s): [facility] [[facility]] - Jorge Moraes MD [STAFF PHYSICIAN] - 1 Week Activity/Diet/Wound Care/Special Instructions: Activity: [] Diet: regular Wound Care: [] Special Instructions: Check blood pressure 3-4 times if top number is greater than 140 or bottom number greater than 85 you will likely need blood pressure medications. Wound care per the wound clinic. Antibiotics per infectious disease. Discharge Disposition: HOME SELF-CARE
--- NOTE | 2020-04-24 13:15 | P.CONS ---
History of Present Illness - Reason for Consult Consult date: 04/24/20 wound care - History of Present Illness This is a 60-year-old female with past medical history of tobacco abuse, obesity who presented to the emergency room on 04/19/2020 secondary to right thumb cellulitis. At that point in time the patient did not 1 I&D in the emergency department. It was recommended that she would be admitted however she declined. Patient [facility] on [facility]2020 who directed her to the hospital for IV antibiotics. Patient was unsure if she had burned her thumb a week ago or if it was from a cat bite. Patient underwent a I&D of the right thumb she is postop date 3. She denies any nausea vomiting abdominal pain or shortness of breath or chest pain. Patient has been controlled. She's been receiving vancomycin and Unasyn. Patient was examined at the bedside dressing was removed. I do foam gauze packing still in place. Ulceration still shows some nonviable tissue including eschar. Minimal serosanguineous drainage noted. Ulceration has fat layer exposure at this time. Review Of Systems: Constitutional: No fever, no chills, no night sweats. No weight change. No weakness, fatigue or lethargy. No daytime sleepiness. Integumentary:reports wounds, no lesions. No rash or pruritus. No unusual bruising. No change in hair or nails. Physical exam: General Appearance: Alert, cooperative, no distress, appears stated age. Skin: See HPI all other Skin color, texture, tugor normal, no rashes or lesions. Neurologic: Alert oriented x3 Assessment 1. Abscess of the right thumb 2. Nonhealing ulceration with fatty layer exposure right thumb Plan: 1. Keep current dressing in place until seen by [facility] tomorrow. 2. Home care to follow wound care instructions for right thumb ulceration: Cleanse with normal saline. Apply absorptive silver rope, saline moistened gauze, dry gauze, rolled gauze and secure with paper tape, secured [place]. Change 3 times a week. 3. Patient to follow-up in the wound care center on 04/27 at 2 PM 4. Keep ulceration dry recommend utilizing a cast cover to shower. Thank you for the consultation any questions please contact the wound care center DNP note has been reviewed and discussed with Dr. Chery and the impression and plan of care has been directed as dictated. 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 No s/sx since History of Any Multi-Drug Resistant Organisms: None Reported Past Surgical History: Tonsillectomy Additional Past Surgical History / Comment(s): cyst removedright foot Past Psychological History: No Psychological Hx Reported Smoking Status: Current every day smoker (1 ppd since age 16 ) Past Alcohol Use History: Occasional (1-2 drinks monthly ) - Past Family History Father Family Medical History: Unable to Obtain Mother Family Medical History: Diabetes Mellitus Additional Family Medical History / Comment(s): heart disease, HTN, CKD Medications and Allergies Home Medications Medication Instructions Recorded Confirmed Type Cephalexin [Keflex] 500 mg PO QID 04/20/20 04/20/20 History Ibuprofen [Motrin Ib] 400 mg PO Q8H 04/20/20 04/20/20 History HYDROcodone/APAP 5-325MG [[place] 5] 1 each PO Q6HR PRN #28 tab 04/24/20 Rx Allergies Allergy/AdvReac Type Severity Reaction Status Date / Time No Known Allergies Allergy Verified 04/19/20 22:38 Physical Exam Vitals: Vital Signs Temp Pulse Resp BP BP Pulse Ox 04/24/20 08:05 97.7 F 54 L 14 172/78 97 04/24/20 00:26 97.5 F L 71 18 172/67 96 04/23/20 20:46 59 L 18 161/82 98 04/23/20 14:08 98.2 F 71 18 155/82 98 Intake and Output 04/23/20 04/24/20 04/24/20 22:59 06:59 14:59 Other: # Voids 2 1 1 Results CBC & Chem 7: 04/24/20 08:10 04/24/20 08:10 Labs: Abnormal Lab Results - Last 24 Hours (Table) 04/24/20 Range/Units 08:10 BUN 19 H (7-17) mg/dL Glucose 107 H (74-99) mg/dL Microbiology - Last 24 Hours (Table) 04/20/20 17:04 Blood Culture - Preliminary Blood No Growth after 72 hours 04/21/20 12:06 Anaerobic Culture - Preliminary Finger - Right First 04/21/20 12:06 Anaerobic Culture - Preliminary Finger - Right First 04/21/20 12:06 Gram Stain - Final Finger - Right First Wound Culture - Final Staphylococcus aureus 04/21/20 12:06 Gram Stain - Final Finger - Right First Wound Culture - Final Staphylococcus aureus Assessment and Plan (1) Nonhealing skin ulcer with fat layer exposed Current Visit: Yes Status: Acute Code(s): L98.492 - NON-PRS CHRONIC ULCER OF SKIN OF SITES W FAT LAYER EXPOSED SNOMED Code(s): 37929996 (2) Abscess of right thumb Current Visit: Yes Status: Acute Code(s): L02.511 - CUTANEOUS ABSCESS OF RIGHT HAND SNOMED Code(s): 02884299377781972
--- NOTE | 2020-05-05 15:57 | P.OP ---
Date of Procedure: 04/21/20 Procedure(s) Performed: PREOPERATIVE DIAGNOSES: 1. Right thumb dorsal subcutaneous abscess 2. Lymphangitis along dorsal radial forearm POSTOPERATIVE DIAGNOSES: 1. Right thumb dorsal subcutaneous abscess 2. Lymphangitis along dorsal radial forearm PROCEDURES PERFORMED: 1. Right thumb subcutaneous abscess incision and drainage 2. Packing of wound with moistened iodoform gauze ANESTHESIA: Gen. ADMISSIONS ADVISOR: none COMPLICATIONS: None ESTIMATED BLOOD LOSS: Less than 10 mL. DISPOSITION: To post-anesthesia care unit INDICATIONS: Mrs. Ladd is a 60-year-old female with a history of abscess involving the dorsal right thumb. she presents to the operating room for incision and drainage. Consent has been obtained after discussion of the risks of incision and drainage of this abscess as being inclusive of, but not limited to: Bleeding, further infection, scarring, discomfort, blood vessel and/or nerve damage, compartment syndrome, failure to relieve symptoms, persistence or recurrence and/or worsening of symptoms or problems, need for further surgery, blood clot, pulmonary embolism, , anesthesia risks, and other risks. PROCEDURE: After appropriate consent was obtained, the patient was taken to the operating room placed in the supine position. Anesthesia was initiated, and after confirmation of adequate anesthesia, the patient was carefully positioned. Care was taken to make sure that all pressure points were adequately padded. Prepping and draping were completed in the usual aseptic fashion using ChloraPrep. Timeout was called, confirming patient identity, side, and procedure. Incision approximately 2 inches in size was created along the abscess, which was located on the dorsal aspect of the thumb. Incision was carried down just through skin and into subcu tissues where was noted that there was gross pus. The gross pus was removed by extending the incision and gently spreading down to the abscess cavity. The abscess cavity was probed with manual palpation until all areas of the abscess cavity were interrogated. Cultures were taken. There did not appear to be any extension of the abscess cavity into the deep muscular fascia. Soft tissue tension visibly and palpably improved after drainage of the abscess. Pulsatile lavage was used, delivering 3 L of saline within the abscess cavity. During this time, small amount of Hibiclens solution was also applied to the wound surface, allowed to soak into the tissues for 1 minute, and then rinsed off using the pulsatile lavage. Subsequently, hemostasis was obtained using electrocautery but there was no significant bleeding present. Wound was lightly packed with quarter-inch iodoform gauze and sterile dressing was then applied. Patient tolerated the procedure well and taken to recovery room in stable condition. Sponge counts were correct.
== END 2020-04-24 14:10 | disposition home or self-care (01) | DRG 581 ==
LOC: 4SSUR 16:44 → 6PED 04-23 05:37
PROVIDERS: ADMIT Orthopaedic Surgery; ATTEND Orthopaedic Surgery
PROC: 0J9J0ZZ Drainage of Right Hand Subcutaneous Tissue and Fascia, Open Approach (ICD-10-PCS; principal; 2020-04-21 13:20)
DX: L03.011 Cellulitis of right finger (principal); W55.01XA Bitten by cat, initial encounter; L98.492 Non-pressure chronic ulcer of skin of other sites with fat layer exposed; F17.210 Nicotine dependence, cigarettes, uncomplicated; E66.9 Obesity, unspecified; S60.371A Other superficial bite of right thumb, initial encounter; B95.61 Methicillin susceptible Staphylococcus aureus infection as the cause of diseases classified elsewhere; R03.0 Elevated blood-pressure reading, without diagnosis of hypertension; Z68.29 Body mass index [BMI] 29.0-29.9, adult; Z83.3 Family history of diabetes mellitus
CPT/HCPCS: 80048; 80053; 80202; 83036; 83735; 85025; 85027; 85610; 85652; 85730; 86140; 87040; 87070; 87075; 87077; 87186; 87205

== ENCOUNTER → 2020-10-13 | Outpatient (CLI) | payer OTHER ==
--- NOTE | 2020-10-13 10:39 | XR ---
EXAMINATION TYPE: XR chest 2V DATE OF EXAM: 10/13/2020 COMPARISON: NONE TECHNIQUE: Frontal view is submitted. HISTORY: Hypertension FINDINGS: The lungs are clear and there is no pneumothorax, pleural effusion, or focal pneumonia. Heart size normal. There is ectasia of the aorta. Hypertrophic and degenerative change of the spine. No overt fa ilure. Arthropathy of the shoulders. IMPRESSION: 1. No acute process.
== END | disposition home or self-care (01) ==
LOC: RADXRMAIN 10:21
PROVIDERS: ATTEND Nurse Practitioner
DX: Z12.39 Encounter for other screening for malignant neoplasm of breast (principal); I10 Essential (primary) hypertension
CPT/HCPCS: 71046

== ENCOUNTER 2020-11-15 08:15 | Day surgery (SDC) | payer OTHER ==
[2020-11-10 10:15] VITALS: BMI 29.7
[~2020-11-15 08:15] MED LIST: LACTATED RINGERS 1,000 ML IV SCH; LIDOCAINE 1% (10MG/ML) FOR IV START INTRADERMA PRN
[2020-11-15 08:34] VITALS: RESP 16; TEMP 97.7
[2020-11-15] MEDS ORDERED: PROPOFOL 10 MG/ML 20 ML VIAL IV ONE (08:48)
[2020-11-15] MEDS ORDERED: LIDOCAINE 1% INJ 10MG/ML (20 ML MDV) ONE (08:48)
--- NOTE | 2020-11-15 08:48 | P.GSHP ---
History of Present Illness H&P Date: 11/15/20 CHIEF COMPLAINT: Colon screen HISTORY OF PRESENT ILLNESS: The patient is a 60-year-old female who presents for colon screen. Lower endoscopy was offered for further evaluation and management. PAST MEDICAL HISTORY: Please see list. PAST SURGICAL HISTORY: Please see list. MEDICATIONS: Please see list. ALLERGIES: Please see list. SOCIAL HISTORY: No illicit drug use FAMILY HISTORY: No reports of Crohn disease or ulcerative colitis. REVIEW OF ORGAN SYSTEMS: CONSTITUTIONAL: No reports of fevers or chills. PHYSICAL EXAM: VITAL SIGNS: Stable GENERAL: Well-developed pleasant in no acute distress. HEENT: No scleral icterus. Extraocular movements grossly intact. Moist buccal mucosa. NECK: Supple without lymphadenopathy. CHEST: Unlabored respirations. Equal bilateral excursions. CARDIOVASCULAR: Regular rate and rhythm. Distal 2+ pulses. ABDOMEN: Soft, nontender, nondistended. MUSCULOSKELETAL: No clubbing, cyanosis, or edema. ASSESSMENT: 1. Colon screen. PLAN: 1. 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 No s/sx since History of Any Multi-Drug Resistant Organisms: None Reported Past Surgical History: Tonsillectomy Additional Past Surgical History / Comment(s): cyst removed right foot. abscess rt hand Past Anesthesia/Blood Transfusion Reactions: No Reported Reaction, Motion Sickness Smoking Status: Current every day smoker - Past Family History Father Family Medical History: Unable to Obtain Mother Family Medical History: Diabetes Mellitus Additional Family Medical History / Comment(s): heart disease, HTN, CKD Medications and Allergies Home Medications Medication Instructions Recorded Confirmed Type Aclidinium Nathalie [Tudorza 400 mcg INHALATION BID 11/10/20 11/10/20 History Pressair] Losartan/Hydrochlorothiazide 1 tab PO DAILY 11/10/20 11/10/20 History [Losartan-Hctz 100-12.5 mg Tab] Allergies Allergy/AdvReac Type Severity Reaction Status Date / Time No Known Allergies Allergy Verified 11/15/20 08:39 Surgical - Exam Vital Signs Temp Pulse Resp BP Pulse Ox 97.7 F 80 16 166/78 99 11/15/20 08:33 11/15/20 08:33 11/15/20 08:33 11/15/20 08:33 11/15/20 08:33
--- NOTE | 2020-11-15 09:24 | P.PCN ---
Date of Procedure: 11/15/20 Description of Procedure: PREOPERATIVE DIAGNOSIS: Colonoscopy screening POSTOPERATIVE DIAGNOSIS: Tubular adenoma transverse colon Sigmoid diverticulosis OPERATION: Colonoscopy to the ileocecal valve and appendiceal orifice, cecum Colonoscopy with hot snare polypectomy SURGEON: Ally Merino MD. ANESTHESIA: MAC. INDICATIONS: The patient is an 60-year-old female who presents for first colonoscopy screening. Benefits and risks were described and informed consent was obtained. DESCRIPTION OF PROCEDURE: The patient had undergone Sutab prep. The patient had been brought into the operating room and laid in the left lateral decubitus position. After adequate intravenous sedation, the rectum was examined with 2% lidocaine jelly. No external hemorrhoids were encountered. The rectal tone was within normal limits. No lesions were palpated in the rectal vault. An Olympus colonoscope was adv anced until the cecum, ileocecal valve and appendiceal orifice were clearly viewed. The prep was excellent. Sigmoid diverticulosis was encountered. Colonic polyps were found and removed. No evidence of focal colitis was found. Retroflexion of the scope demonstrated grade 1 internal hemorrhoids without active bleeding or inflammation. The colon was desufflated. The patient had tolerated the procedure well. Withdrawal time was over 6 minutes. FINDINGS: Aronchick preparation quality scale 1 (1-5) Internal hemorrhoids, grade 1 No external hemorrhoids No arteriovenous malformations. Sigmoid diverticulosis Removal of 1 polyps: - Snare polypectomy mid transverse colon, 5 mm tubulovillous adenoma polyp. No focal colitis. RECOMMENDATIONS: Repeat colonoscopy in 3 years2023 Plan - Discharge Summary New Discharge Prescriptions: Continue Losartan/Hydrochlorothiazide [Losartan-Hctz 100-12.5 mg Tab] 1 tab PO DAILY Aclidinium Salina [Tudorza Pressair] 400 mcg INHALATION BID Discharge Medication List Aclidinium Salina [Tudorza Pressair] 400 mcg INHALATION BID 11/10/20 [History] Losartan/Hydrochlorothiazide [Losartan-Hctz 100-12.5 mg Tab] 1 tab PO DAILY 11/10/20 [History] Follow up Appointment(s)/Referral(s): Ally Merino MD [STAFF PHYSICIAN] - As Needed Patient Instructions/Handouts: Diverticulosis Diet (GEN), Diverticulosis (GEN), Colorectal Polyps (GEN) Activity/Diet/Wound Care/Special Instructions: Repeat colonoscopy 3 years, 2023 Discharge Disposition: HOME SELF-CARE
[2020-11-15 09:37] VITALS: BP 129/73; PULSE 73
== END 2020-11-15 10:07 | disposition home or self-care (01) ==
LOC: ORWHC2ENDO 08:15
PROVIDERS: ATTEND Surgery Plastic and Reconstructive Surgery
DX: Z12.11 Encounter for screening for malignant neoplasm of colon (principal); D12.3 Benign neoplasm of transverse colon; K57.30 Diverticulosis of large intestine without perforation or abscess without bleeding; F17.200 Nicotine dependence, unspecified, uncomplicated; I10 Essential (primary) hypertension; J44.9 Chronic obstructive pulmonary disease, unspecified; Z82.49 Family history of ischemic heart disease and other diseases of the circulatory system; Z83.3 Family history of diabetes mellitus
CPT/HCPCS: 45385; J2001; J2704; 88305

== ENCOUNTER → 2020-11-22 | Outpatient (CLI) | payer OTHER ==
--- NOTE | 2020-11-22 14:18 | MM ---
Reason for exam: screening (asymptomatic). Baseline mammogram. History: Patient is postmenopausal. Physical Findings: Nurse did not find any significant physical abnormalities on exam. MG Screening Mammo w CAD Bilateral CC and MLO view(s) were taken. The breast tissue is heterogeneously dense. This may lower the sensitivity of mammography. There is no discrete abnormality. Focal asymmetry subareolar left breast. These results were verbally communicated with the patient and result sheet given to the patient on 11/22/20. ASSESSMENT: Incomplete: need additional imaging evaluation, BI-RAD 0 RECOMMENDATION: Special view mammogram of the left breast.
--- NOTE | 2020-11-22 14:21 | MM ---
Reason for exam: additional evaluation requested from abnormal screening. History: Patient is postmenopausal. Physical Findings: Breast exam preformed at baseline screening. MG Work Up Mamm w CAD LT Spot compression CC and LM view(s) were taken of the left breast. The breast tissue is heterogeneously dense. This may lower the sensitivity of mammography. Focal asymmetry left subareolar. These results were verbally communicated with the patient and result sheet given to the patient on 11/22/20. ASSESSMENT: Incomplete: need additional imaging evaluation, BI-RAD 0 RECOMMENDATION: Ultrasound of the left breast.
--- NOTE | 2020-11-22 14:23 | USB ---
Reason for exam: additional evaluation requested from abnormal screening. History: Patient is postmenopausal. US Breast Workup Limited LT Technologist: Marychuy Montesinos Left limited breast ultrasound including focal area of concern, retroareolar and axilla demonstrates a 0.7 x 0.6 x 0.6cm circumscribed, hypoechoic lesion at the nipple, a 0.4 x 0.4 x 0.4cm hyperechoic lesion at the nipple and a 0.9 x 0.9 x 0.5cm lesion at the nipple. These results were verbally communicated with the patient and result sheet given to the patient on 11/22/20. ASSESSMENT: Suspicious, BI-RAD 4 RECOMMENDATION: Surgical consultation and ultrasound core biopsy of the left breast. Called Dr. Johnston's office with mammographic findings and has scheduled an appointment for the patient for 12/08/20 at 12:[address] Gu. Biopsy scheduled for 12/13/20 at 10:30. PRELIMINARY REPORT CALLED AND FAXED TO DR. GU ON 11/22/20.
== END | disposition home or self-care (01) ==
LOC: RADMAMWWP 09:40
PROVIDERS: ATTEND Family Medicine
DX: Z12.31 Encounter for screening mammogram for malignant neoplasm of breast (principal); R92.8 Other abnormal and inconclusive findings on diagnostic imaging of breast
CPT/HCPCS: 77065; 77067

== ENCOUNTER → 2020-12-08 | Outpatient (CLI) | payer OTHER ==
[2020-12-08 12:01] VITALS: BP 160/76; PULSE 86; RESP 18; TEMP 98
--- NOTE | 2020-12-08 12:17 | P.GSHP ---
History of Present Illness H&P Date: 12/08/20 Chief Complaint: Inverted left nipple/left nipple discharge Cassandra is a 60-year-old white female seen in consultation for Dr. Jose R Johnston regarding an inverted left nipple and left nipple discharge. She underwent bilateral mammogram on . No discrete abnormality was noted but focal asymmetry in the subareolar left breast was identified. The patient then underwent a left breast ultrasound on the same day. This revealed a 0.7 cm hypoechoic lesion at the nipple, so 0.4 cm hypoechoic lesion at the nipple, and a 0.9 cm lesion at the nipple. The patient states she feels nodularity of her left nipple area. It is also tender at times. She does not complain of any trauma to her breast. She has not had any recent infection in her breast. She's never had any surgery on her breast. Caffeine: 1 cup/day nicotine: 1PPD/45 years chocolate: rare Family History: paternal aunt: breast cancer Hormonal History: menarche: 16 , breast fed: no, age at : 28 menopause: 50 BCP: none hormones: none Surgical history: abscess right thumb right foot cyst removed tonsillectomy Medical History: HTN COPD Cataract left eye Social history: Nicotine: One pack per day for 45 years Alcohol: Drugs: Negative - Constitutional Constitutional: Denies chills, Denies fever - EENT Eyes: bilateral blurred vision (cataract left eye), denies pain Ears: deny: decreased hearing, tinnitus Ears, nose, mouth and throat: Reports headache, Denies sore throat - Breasts Breasts: bilateral: as per HPI - Cardiovascular Cardiovascular: Denies chest pain, Denies shortness of breath - Respiratory Comment: COPD - Gastrointestinal Gastrointestinal: Denies abdominal pain, Denies diarrhea, Denies nausea, Denies vomiting - Genitourinary (Female) Genitourinary: Denies dysuria, Denies hematuria - Menstruation Menstruation: Reports postmenopausal - Musculoskeletal Musculoskeletal: Reports myalgias - Integumentary Integumentary: Denies pruritus, Denies rash - Neurological Neurological: Denies numbness, Denies weakness - Psychiatric Psychiatric: Denies anxiety, Denies depression - Endocrine Endocrine: Reports weight change, Denies fatigue - Hematologic/Lymphatic Comment: none - Allergic/Immunologic Allergic/Immunologic: Reports as per HPI Past Medical History Additional Past Medical History / Comment(s): 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 No s/sx since. COPD History of Any Multi-Drug Resistant Organisms: None Reported Past Surgical History: Tonsillectomy Additional Past Surgical History / Comment(s): cyst removed right foot. Abcess removed from Right thumb april 2020 Past Psychological History: No Psychological Hx Reported Smoking Status: Current every day smoker Past Alcohol Use History: Rare Past Drug Use History: None Reported - Past Family History Father Family Medical History: Unable to Obtain Mother Family Medical History: Diabetes Mellitus Additional Family Medical History / Comment(s): heart disease, HTN, CKD Medications and Allergies Home Medications Medication Instructions Recorded Confirmed Type Losartan/Hydrochlorothiazide 1 tab PO DAILY 11/10/20 12/08/20 History [Losartan-Hctz 100-12.5 mg Tab] Fluticasone/Umeclidin/Vilanter 1 puff INHALATION DAILY 11/30/20 12/08/20 History [Trelegy Ellipta 200-62.5-25] Allergies Allergy/AdvReac Type Severity Reaction Status Date / Time No Known Allergies Allergy Verified 12/08/20 11:59 Surgical - Exam Vital Signs Temp Pulse Resp BP Pulse Ox 98.0 F 86 18 160/76 99 12/08/20 11:59 12/08/20 11:59 12/08/20 11:59 12/08/20 11:59 12/08/20 11:59 BMI 28.3 - General no distress - Eyes cataract left eye normal ocular movement - ENT normal nares - Neck trachea midline - Respiratory normal respiratory effort, clear to auscultation - Cardiovascular Rhythm: regular Heart Sounds: normal: S1, S2 - Abdomen Abdomen: soft - Integumentary normal turgor - Neurologic no disoriented, no combative - Musculoskeletal normal gait, normal posture - Psychiatric oriented to time, oriented to person, oriented to place, speech is normal, memory intact Breast Exam: BRA: 44D inspection: Right breast larger than left breast, bilateral grade 3 ptosis, left nipple inverted Palpation: Right breast multiple positional exam no dominant masses or nodules of concern Right axilla: No adenopathy of concern Left breast: Multiple positional exam fibrocystic changes, mass posterior to nipple areolar complex Left axilla: No adenopathy of concern Results The recurrent ultrasound results reviewed Assessment and Plan Assessment: Impression: 1. Left nipple inversion 2. Mass posterior to the left nipple 3 abnormal left breast mammogram and ultrasound 4. Hypertension 5. COPD 6. Cataract left eye Plan: 1. Ultrasound-guided core biopsy left breast 2. Follow-up after ultrasound-guided core biopsy 3. If the ultrasound core biopsies discordant with consider open biopsy and resection of the area of concern in the left breast Risk and benefits of the procedure discussed with the patient. She understands and wishes to proceed. Risks include but are not limited to bleeding, infection, reaction to the anesthetic. If the biopsy is discordant an open biopsy in the operating room will be recommended. Cc: Dr. Jose R Johnston
== END | disposition home or self-care (01) ==
LOC: WWCWWP 11:48
PROVIDERS: ATTEND Surgery
DX: Z53.9 Procedure and treatment not carried out, unspecified reason (principal)

== ENCOUNTER → 2020-12-13 | Day surgery (SDC) | payer OTHER ==
[2020-12-13 09:57] VITALS: RESP 18
[2020-12-13 11:36] VITALS: BP 118/72; PULSE 71; TEMP 98.6
--- NOTE | 2020-12-13 14:05 | USB ---
EXAMINATION TYPE: US biopsy breast VAD LT DATE OF EXAM: 12/13/2020 CLINICAL HISTORY: R92.8 ABN MAMMO. TECHNIQUE: Ultrasound guided vaccuum assisted core biopsy of left breast. COMPARISON: NONE FINDINGS: The ultrasound guided core biopsy procedure was explained to the patient. The risks, benef its, alternatives were discussed. An informed consent was then obtained. Timeout was performed. The patient was placed in supine positioning for imaging and for the procedure. The overlying skin w as prepped with betadine and sterilely draped in usual sterile fashion. Lidocaine 1% was used as ane sthetic into the skin. Lidocaine 1% with epinephrine was utilized for deeper breast tissue up to area of concern in the breast. A small skin jeremy was made with surgical scalpel. Under ultrasound guidance, a 12-gauge vacuum assisted biopsy device was used to obtain 5 core samples . A biopsy clip was left in lesion. Wing clip was placed. Good hemostasis was obtained with direct pressure. Discharge instructions were discussed with the pa chinmay. The patient will follow up with the referring physician for results. Postprocedure mammogram: The patient was transferred to mammography for physician ordered post proced ure mammogram for clip placement verification. The clip is in the expected region of the biopsy. The patient tolerated the procedure well without any immediate complication. The patient was dischar ged to home in stable condition. IMPRESSION: 1. Successful ultrasound guided biopsy left breast. Recommendations: 1. Recommendations are pending pathology results.
--- NOTE | 2020-12-14 09:10 | MM ---
Reason for exam: additional evaluation requested from abnormal screening. Last mammogram was performed 1 month ago. History: Patient is postmenopausal. MG Diagnostic Mammo LT Wo CAD CC, LM, and ML view(s) were taken of the left breast. Prior study comparison: November 22, 2020, left breast MG work up mamm w CAD LT. November 22, 2020, bilateral MG screening mammo w CAD. ASSESSMENT: Post procedure mammogram for marker placement RECOMMENDATION: Ultrasound of the left breast in 6 months. PENDING PATHOLOGY RESULTS.
== END ==
LOC: RADUSWWP 09:40
PROVIDERS: ATTEND Surgery
DX: N60.32 Fibrosclerosis of left breast (principal); L92.9 Granulomatous disorder of the skin and subcutaneous tissue, unspecified
CPT/HCPCS: 88305; 77065; 19083; A4648; J2001

== ENCOUNTER → 2020-12-22 | Outpatient (CLI) | payer OTHER ==
[2020-12-22 12:09] VITALS: BP 150/74; PULSE 98; RESP 18; TEMP 98
--- NOTE | 2020-12-22 12:33 | P.PN ---
Subjective Progress Note Date: 12/22/20 Principal diagnosis: Abscess on core biopsy of left breast Cassandra is a 60-year-old white female seen in consultation for Dr. Jose R Johnston regarding an inverted left nipple and left nipple discharge. She underwent bilateral mammogram on . No discrete abnormality was noted but focal asymmetry in the subareolar left breast was identified. The patient then underwent a left breast ultrasound on the same day. This revealed a 0.7 cm hypoechoic lesion at the nipple, so 0.4 cm hypoechoic lesion at the nipple, and a 0.9 cm lesion at the nipple. The patient states she feels nodularity of her left nipple area. It is also tender at times. She does not complain of any trauma to her breast. She has not had any recent infection in her breast. She's never had any surgery on her breast. Core biopsy was done on 12-13-20 and this showed abundant acute and chronic inflammation consistent with an abscess. She tolerated the biopsy without difficulty. She has not had any fever or chills, she's not had any erythema or changes in the breast that she is concerned about. Objective - Vital Signs Vital signs: Vital Signs Temp 98.0 F 12/22/20 12:06 Pulse 98 12/22/20 12:06 Resp 18 12/22/20 12:06 BP 150/74 12/22/20 12:06 Pulse Ox 98 12/22/20 12:06 Intake & Output 12/21/20 12/22/20 12/22/20 18:59 06:59 18:59 Weight 82.1 kg - Constitutional General appearance: Present: cooperative - EENT Eyes: Present: EOMI ENT: Present: hearing grossly normal - Neck Neck: Present: normal ROM - Respiratory Respiratory: bilateral: CTA - Cardiovascular Heart sounds: normal: S1, S2 - Integumentary Integumentary: Present: normal turgor - Musculoskeletal Musculoskeletal: Present: gait normal - Psychiatric Psychiatric: Present: A&O x's 3, appropriate affect, intact judgment & insight - Additional findings Additional findings: Left breast biopsy site is clean and dry On today's examination with examination for discharge is produced from the nipple complex Assessment and Plan Assessment: Impression: Inverted left nipple Nodule left nipple retroareolar area biopsy consistent with abscess No fever or chills Plan: Cultures of discharge from nipple complex Antibiotics Follow-up 2 weeks CC: Dr. Johnston
== END | disposition home or self-care (01) ==
LOC: WWCWWP 11:57
PROVIDERS: ATTEND Surgery
DX: Z53.9 Procedure and treatment not carried out, unspecified reason (principal)

== ENCOUNTER → 2020-12-29 | Outpatient (CLI) | payer OTHER ==
[2020-12-29 10:48] VITALS: BP 121/73; PULSE 87; RESP 16; TEMP 98.2
--- NOTE | 2020-12-29 11:05 | P.PN ---
Progress Note - Text Progress Note Date: 12/29/20 Abscess on core biopsy of left breast Cassandra is a 60-year-old white female seen in consultation for Dr. Jose R Johnston regarding an inverted left nipple and left nipple discharge. She underwent bilateral mammogram on . No discrete abnormality was noted but focal asymmetry in the subareolar left breast was identified. The patient then underwent a left breast ultrasound on the same day. This revealed a 0.7 cm hypoechoic lesion at the nipple, so 0.4 cm hypoechoic lesion at the nipple, and a 0.9 cm lesion at the nipple. The patient states she felt nodularity of her left nipple area. It was also tender at times. She did not complain of any trauma to her breast. She has not had any recent infection in her breast. She's never had any surgery on her breast. Core biopsy was done on 12-13-20 and this showed abundant acute and chronic inflammation consistent with an abscess. She tolerated the biopsy without difficulty. She has not had any fever or chills, she's not had any erythema or changes in the breast that she is concerned about. Cultures were obtained on . These revealed anaerobic gram-negative bacilli and sensitivities revealed sensitive to Cipro and Bactrim. The patient had been given a course prior to the sensitivities coming back of Keflex versus does not appear to be have been sensitive to. Despite this the patient at this time has near complete resolution of any nodularity as well as no evidence of any infection. She is not complaining of any nipple discharge. She does have persistent retracted nipple on this side. aPlan: 1. Close surveillance 2. Repeat ultrasound behind the left nipple areolar complex in 3 months with physician exam at that time 3. At this time I will avoid further antibiotic therapy as there is no evidence of any infection or mass 4. No surgical intervention is recommended at this time Cc: Dr. Jose R Johnston
== END ==
LOC: WWCWWP 10:35
PROVIDERS: ATTEND Surgery
DX: Z53.9 Procedure and treatment not carried out, unspecified reason (principal)

== ENCOUNTER → 2021-04-12 | Outpatient (CLI) | payer OTHER ==
--- NOTE | 2021-04-12 10:26 | USB ---
Reason for exam: follow-up at short interval from prior study. History: Patient is postmenopausal. Benign US biopsy breast VAD LT of the left breast, December 13, 2020. Physical Findings: Nurse Summary: left nipple inverted (always), left retroareolar firm 1cm (nurse mj). US Breast Limited LT Technologist: Marychuy Montesinos Left limited breast ultrasound including focal area of concern, retroareolar and axilla demonstrates a 1.4 x 1.1 x 0.9cm now lobulated lesion at the nipple with clip seen versus 7 x 7 x 6mm previously. Could be a complex abscess versus mass. Surgical evaluation recommended. These results were verbally communicated with the patient and result sheet given to the patient on 04/12/21. ASSESSMENT: Suspicious, BI-RAD 4 RECOMMENDATION: Surgical consultation of the left breast. Called office with mammographic findings and has scheduled an appointment for the patient for 04/19/21 at 8:[address] Gu. PRELIMINARY REPORT CALLED AND FAXED TO DR. GU ON 04/12/21.
== END | disposition home or self-care (01) ==
LOC: RADUSWWP 08:50
PROVIDERS: ATTEND Surgery
DX: R92.8 Other abnormal and inconclusive findings on diagnostic imaging of breast (principal)

== ENCOUNTER → 2021-04-19 | Outpatient (CLI) | payer OTHER ==
[2021-04-19 08:58] VITALS: BP 149/73; PULSE 91; RESP 18; TEMP 97.8
--- NOTE | 2021-04-19 09:16 | P.PN ---
Subjective Progress Note Date: 04/19/21 Principal diagnosis: Recurring abscess posterior to the left nipple areolar complex Cassandra is a 61-year-old white female seen in consultation for Dr. Jose R Johnston on 12-08-20 regarding an inverted left nipple and left nipple discharge. She underwent bilateral mammogram on . No discrete abnormality was noted but focal asymmetry in the subareolar left breast was identified. The patient then underwent a left breast ultrasound on the same day. This revealed a 0.7 cm hypoechoic lesion at the nipple, so 0.4 cm hypoechoic lesion at the nipple, and a 0.9 cm lesion at the nipple. The patient states she felt nodularity of her left nipple area. It was also tender at times. She did not complain of any trauma to her breast. She had not had any recent infection in her breast. She'd never had any surgery on her breast. The patient underwent an ultrasound-guided core biopsy of the left breast on 1019. This revealed abundant acute and chronic inflammation with granulation tissue, fibrosis, abscess formation and focal foreign body type reaction. She was treated with outpatient antibiotics with resolution of the symptoms. She recently underwent a repeat ultrasound of the left breast on . This revealed a 1.4 x 1.1 cm lobulated lesion at the nipple with a clip seen versus a 7 x 6 mm previous lesion. The feeling was this could be a complex abscess versus mass surgical evaluation recommended. The patient is not complaining of any new changes in her breast. She has not noted any enlargement in the area behind the nipple. She has not had any fever or chills. She she does state that the area of firmness has recurred posterior to the left nipple complex. Cultures obtained on revealed gram-negative bacilli sensitive to Cipro and Bactrim. The patient had been given a course of Keflex prior to the sensitivities been obtained with complete resolution and therefore was not further treated with Cipro or Bactrim. Caffeine: 1 cup/day nicotine: 1PPD/45 years chocolate: rare Family History: paternal aunt: breast cancer Hormonal History: menarche: 16 , breast fed: no, age at : 28 menopause: 50 BCP: none hormones: none Surgical history: abscess right thumb right foot cyst removed tonsillectomy Medical History: HTN COPD Cataract left eye Social history: Nicotine: One pack per day for 45 years Alcohol: Drugs: Negative - Constitutional Constitutional: Denies chills, Denies fever - EENT Eyes: bilateral blurred vision (cataract left eye), denies pain Ears: deny: decreased hearing, tinnitus Ears, nose, mouth and throat: Reports headache, Denies sore throat - Breasts Breasts: bilateral: as per HPI - Cardiovascular Cardiovascular: Denies chest pain, Denies shortness of breath - Respiratory Comment: COPD - Gastrointestinal Gastrointestinal: Denies abdominal pain, Denies diarrhea, Denies nausea, Denies vomiting - Genitourinary (Female) Genitourinary: Denies dysuria, Denies hematuria - Menstruation Menstruation: Reports postmenopausal - Musculoskeletal Musculoskeletal: Reports myalgias - Integumentary Integumentary: Denies pruritus, Denies rash - Neurological Neurological: Denies numbness, Denies weakness - Psychiatric Psychiatric: Denies anxiety, Denies depression - Endocrine Endocrine: Reports weight change, Denies fatigue - Hematologic/Lymphatic Comment: none - Allergic/Immunologic Allergic/Immunologic: Reports as per HPI Objective - Vital Signs Vital signs: Vital Signs Temp 97.8 F 04/19/21 08:55 Pulse 91 04/19/21 08:55 Resp 18 04/19/21 08:55 BP 149/73 04/19/21 08:55 Pulse Ox 97 04/19/21 08:55 Intake & Output 04/18/21 04/19/21 04/19/21 18:59 06:59 18:59 Weight 82.554 kg - Exam BMI 28.5 - Constitutional General appearance: Present: cooperative - EENT Eyes: Present: EOMI ENT: Present: hearing grossly normal - Neck Neck: Present: normal ROM - Respiratory Respiratory: bilateral: diminished (Decreased breath sounds at bases) - Cardiovascular Rhythm: regular Heart sounds: normal: S1, S2 - Integumentary Integumentary: Present: normal turgor - Musculoskeletal Musculoskeletal: Present: gait normal - Psychiatric Psychiatric: Present: A&O x's 3, appropriate affect, intact judgment & insight - Additional findings Additional findings: Breast Exam: BRA: 42D Inspection: Bilateral grade 3 ptosis, left nipple inversion Palpation: Right breast: Multi-positional exam fibrocystic changes no dominant masses or nodules of concern Right axilla: No adenopathy of concern Left breast: Multi-positional exam fibrocystic changes, approximately 1 cm nodule behind the left nipple areolar complex with left nipple inversion Left axilla: No adenopathy of concern Assessment and Plan Assessment: Impression: 1. Fibrocystic breast changes 2. Hypertension 3. COPD 4. Recurrent left breast fullness post likely recurrent abscess prior biopsy consistent with abscess Plan: I&D of abscess left posterior nipple area in operating room as this appears to be complex and not able to be drained by radiology Bactrim double strength 1 by mouth twice a day The skin benefits of the procedure discussed with the patient. Risks include but are not limited to bleeding, infection, reaction to the anesthetic. The patient understands and wishes to proceed. She understands that the incisional most likely be left open with packing required. She also understands that as long she smokes that wound healing is more difficult. CC: Dr. Jose R Johnston
== END | disposition home or self-care (01) ==
LOC: WWCWWP 08:45
PROVIDERS: ATTEND Surgery
DX: Z53.9 Procedure and treatment not carried out, unspecified reason (principal)

== ENCOUNTER 2021-04-24 07:14 | Day surgery (SDC) | payer OTHER ==
[2021-04-20 14:02] VITALS: BMI 28.3
[~2021-04-24 07:14] MED LIST changes: +DEXAMETHASONE SOD PHOSPHATE 4 MG/ML 1 ML VIAL IV ONE; +HEPARIN SODIUM,PORCINE/PF 5,000 UNIT/0.5 ML SYRINGE SQ PRN; +HYDROmorphone 0.5 MG/0.5 ML SYRINGE IVP PRN; +ONDANSETRON 4 MG/2 ML VIAL IVP ONE; +SCOPOLAMINE 1.5MG/72HR PATCH TRANSDERM ONE
[2021-04-24 07:37] VITALS: RESP 16
[2021-04-24] MEDS ORDERED: fentaNYL (PF) 50 MCG/ML 2 ML AMP ONE (08:52)
[2021-04-24] MEDS ORDERED: ePHEDrine 50 MG/ML 1 ML VIAL ONE (08:52)
[2021-04-24] MEDS ORDERED: LIDOCAINE 1% INJ 10MG/ML (20 ML MDV) ONE (08:52)
[2021-04-24] MEDS ORDERED: PROPOFOL 10 MG/ML 20 ML VIAL IV ONE (08:52)
[2021-04-24] MEDS ORDERED: KETOROLAC 15 MG/ML 1 ML VIAL ONE (08:52)
[2021-04-24] MEDS ORDERED: SUCCINYLCHOLINE CHLORIDE 100 MG/5 ML SYR IV ONE (08:52)
[2021-04-24] MEDS ORDERED: MIDAZOLAM 2 MG/2 ML VIAL ONE (08:52)
--- NOTE | 2021-04-24 09:59 | P.OP ---
Date of Procedure: 04/24/21 Preoperative Diagnosis: Left breast mass/abscess behind the nipple areolar complex Postoperative Diagnosis: Same Procedure(s) Performed: Excision of firm nodule/probable chronic abscess cavity behind the nipple areolar complex on the left breast Anesthesia: RAY Surgeon: Kristi Gu Estimated Blood Loss (ml): 5 IV fluids (ml): 600 Pathology: other (nodule behind the left nipple areolar complex/infected) Condition: stable Disposition: same day Indications for Procedure: Chronically infected nodule behind the left nipple areolar complex Operative Findings: Nodule behind the left nipple areolar complex approximately 8 mm in size/infected Description of Procedure: The patient was taken to the operating room and following induction of anesthesia the left breast was prepped and draped in a sterile fashion. Periareolar incision was made and carried down to the palpable abnormality. Excisional biopsy was performed. Upon opening the area of the nodule purulent drainage was noted. This tracked to the nipple complex. Cultures were obtained. The wound was well irrigated. The wound was packed using iodoform gauze. One suture was placed in the incision but leaving the remainder the incision open. The patient tolerated the procedure in stable condition. All instrument and sponge counts were correct at the end of the case.
--- NOTE | 2021-04-24 10:01 | P.DS ---
Providers Attending physician: Kristi Gu Primary care physician: Jose R Johnston Plan - Discharge Summary Discharge Rx Participant: Yes New Discharge Prescriptions: No Action Losartan/Hydrochlorothiazide [Losartan-Hctz 100-12.5 mg Tab] 1 tab PO DAILY Sulfamethoxazole/Trimethoprim [Sulfamethoxazole-Tmp Ds Tablet] 1 each PO BID [id number] [id number] [Excedrin] 1 each PO Q6HR PRN PRN Reason: Pain Fluticasone/Umeclidin/Vilanter [Trelegy Ellipta 200-62.5-25] 1 puff INHALATION DAILY Discharge Medication List Losartan/Hydrochlorothiazide [Losartan-Hctz 100-12.5 mg Tab] 1 tab PO DAILY 11/10/20 [History] Fluticasone/Umeclidin/Vilanter [Trelegy Ellipta 200-62.5-25] 1 puff INHALATION DAILY 11/30/20 [History] Egmpica-Xfcc-Lymw [id number] [Excedrin] 1 each PO Q6HR PRN 04/20/21 [History] Sulfamethoxazole/Trimethoprim [Sulfamethoxazole-Tmp Ds Tablet] 1 each PO BID 04/20/21 [History] Follow up Appointment(s)/Referral(s): Kristi Gu MD [STAFF PHYSICIAN] - 04/25/21 1:00 pm Activity/Diet/Wound Care/Special Instructions: second appt to see dr barbour is may 11 at 12:[address] for 24 hours after discharge change packing Q day may shower after 24 hours Discharge Disposition: HOME SELF-CARE
[2021-04-24 10:23] VITALS: TEMP 97.8
[2021-04-24 11:27] VITALS: BP 132/69; PULSE 76
== END 2021-04-24 11:42 | disposition home or self-care (01) ==
LOC: OR 07:14
PROVIDERS: ATTEND Surgery
DX: N61.1 Abscess of the breast and nipple (principal)
CPT/HCPCS: 19301; 88304; 87070; 87205; 87075; J2250; J1100; J0690; J2405; J2001; J3010; J1885; J0330; J2704; J1644

== ENCOUNTER → 2021-04-25 | Outpatient (CLI) | payer OTHER ==
[2021-04-25 13:27] VITALS: BP 144/68; PULSE 76; RESP 18; TEMP 97.7
--- NOTE | 2021-04-25 13:35 | P.PN ---
Progress Note - Text Progress Note Date: 04/25/21 Cassandra is a 61-year-old white female status post resection of a nodule posterior to the left nipple areolar complex as well as drainage of some abscess fluid. Cultures so far have been negative. Exam: Biopsy site is clean and dry Lungs: Clear Heart: Regular rate and rhythm Impression: Left breast surgical site clean Packing change Plan: Continue packing change Patient will follow up in approximately 1 1/2 week to call if any questions sooner CC: Dr. Jose R Johnston
== END | disposition home or self-care (01) ==
LOC: WWCWWP 13:01
PROVIDERS: ATTEND Surgery
DX: Z53.9 Procedure and treatment not carried out, unspecified reason (principal)

== ENCOUNTER → 2021-05-11 | Outpatient (CLI) | payer OTHER ==
[2021-05-11 12:51] VITALS: BP 136/80; PULSE 98; RESP 18; TEMP 98.1
--- NOTE | 2021-05-11 13:12 | P.PN ---
Progress Note - Text Progress Note Date: 05/11/21 Cassandra is a 61-year-old white female status post resection of a nodule posterior to the left nipple areolar complex on 04-24-21 as well as drainage of some abscess fluid. Cultures received on revealed moderate gram-negative bacilli, a few gram-positive cocci. Patient has no fever or chills. She has no erythema she has no pain in her breast. Exam: Biopsy site is clean and dry; there is communication between the nipple area and the medial abscess drainage site Lungs: Clear Heart: Regular rate and rhythm Impression: Left breast surgical site clean; the packing was changed there is communication between the nipple area and the medial abscess drainage site Plan: Continue packing change Patient will follow up in approximately 2 weeks to call if any questions sooner CC: Dr. Jose R Johnston
== END | disposition home or self-care (01) ==
LOC: WWCWWP 12:30
PROVIDERS: ATTEND Surgery
DX: Z53.9 Procedure and treatment not carried out, unspecified reason (principal)

== ENCOUNTER → 2021-06-08 | Outpatient (CLI) | payer OTHER ==
--- NOTE | 2021-06-08 15:13 | US ---
EXAMINATION TYPE: US kidneys/renal and bladder DATE OF EXAM: 06/08/2021 COMPARISON: NONE CLINICAL HISTORY: N28.9 DISORDER OF KIDNEY AND URETER, UNSPECIFIED. renal insufficiency EXAM MEASUREMENTS: Right Kidney: 11.1 x 4.4 x 3.9 cm Left Kidney: 10.4 x 4.8 x 3.8 cm Right Kidney: no evidence of hydronephrosis Left Kidney: possible dilated renal pelvis Bladder: wnl Bilateral Jets seen: yes IMPRESSION: 1. There may be some mild prominence of left renal pelvis. Overt hydronephrosis is not identified. No additional suspicious ultrasound findings.
== END | disposition home or self-care (01) ==
LOC: RADUSWWP 10:49
PROVIDERS: ATTEND Family Medicine
DX: N28.9 Disorder of kidney and ureter, unspecified (principal)
CPT/HCPCS: 76770

== ENCOUNTER → 2021-12-17 | Outpatient (CLI) | payer OTHER ==
--- NOTE | 2021-12-17 14:27 | MM ---
Reason for Exam: Follow-up at short interval from prior study. Last screening mammogram was performed 12 month(s) ago. Patient History: Menarche at age 15. First Full-Term at age 28. Postmenopausal. 12/13/2020, Benign Core Biopsy on the left side. Risk Values: Fang 5 year model risk: 1.8%. NCI Lifetime model risk: 9.8%. Prior Study Comparison: 11/22/2020 Bilateral Screening Mammogram, [facility]. 11/22/2020 Left Diagnostic Mammogram, [facility]. 11/22/2020 Left Diagnostic Ultrasound, [facility]. 12/13/2020 Left Diagnostic Mammogram, [facility]. 04/12/2021 Left Diagnostic Ultrasound, [facility]. Tissue Density: There are scattered fibroglandular densities. Findings: Analyzed By CAD. Questioned asymmetric density central right MLO view does not persist on additional views. No significant change from prior exams. Overall Assessment: Benign, BI-RAD 2 Management: Screening Mammogram of both breasts in 1 year. 1. Patient should continue monthly self breast exams. 2. A clinical breast exam by your physician is recommended on an annual basis. 3. This exam should not preclude additional follow-up of suspicious palpable abnormalities. Results were given to the patient verbally at the time of exam. Electronically signed and approved by: Brianna Zuñiga M.D. Radiologist
== END | disposition home or self-care (01) ==
LOC: RADMAMWWP 13:34
PROVIDERS: ATTEND Surgery
DX: R92.8 Other abnormal and inconclusive findings on diagnostic imaging of breast (principal); Z78.0 Asymptomatic menopausal state
CPT/HCPCS: 77066; G0279; 77062

== ENCOUNTER → 2021-12-21 | Outpatient (CLI) | payer OTHER ==
[2021-12-21 10:46] VITALS: BP 155/69; PULSE 73; RESP 16; TEMP 98
--- NOTE | 2021-12-21 11:13 | P.PN ---
Subjective Progress Note Date: 12/21/21 Principal diagnosis: fibrocystic breast changes Cassandra is a 61-year-old white female seen in consultation for Dr. Jose R Johnston initially regarding an inverted left nipple and left nipple discharge. She underwent bilateral mammogram on . No discrete abnormality was noted but focal asymmetry in the subareolar left breast was identified. The patient then underwent a left breast ultrasound on the same day. This revealed a 0.7 cm hypoechoic lesion at the nipple, so 0.4 cm hypoechoic lesion at the nipple, and a 0.9 cm lesion at the nipple. The patient states she feels nodularity of her left nipple area. It is also tender at times. She does not complain of any trauma to her breast. She has not had any recent infection in her breast. She's never had any surgery on her breast. She had excision of the nodules on 12-08-20; this revealed a chronic abscess. She had a bilateral mammogram on 12-17-21 which was BIRAD 2. She is not complaining of any new lumps masses or nodules of concern in either breast. Risk assessment reveals a five-year risk of 1.8%, she has declined hormone intervention screw reduction. Caffeine: 1 cup/day nicotine: 1PPD/45 years chocolate: rare Family History: paternal aunt: breast cancer Hormonal History: menarche: 16 , breast fed: no, age at : 28 menopause: 50 BCP: none hormones: none Surgical history: abscess right thumb right foot cyst removed tonsillectomy Medical History: HTN COPD Cataract left eye Social history: Nicotine: One pack per day for 45 years Alcohol: Drugs: Negative - Constitutional Constitutional: Denies chills, Denies fever - EENT Eyes: bilateral blurred vision (cataract left eye), denies pain Ears: deny: decreased hearing, tinnitus Ears, nose, mouth and throat: Reports headache, Denies sore throat - Breasts Breasts: bilateral: as per HPI - Cardiovascular Cardiovascular: Denies chest pain, Denies shortness of breath - Respiratory Comment: COPD - Gastrointestinal Gastrointestinal: Denies abdominal pain, Denies diarrhea, Denies nausea, Denies vomiting - Genitourinary (Female) Genitourinary: Denies dysuria, Denies hematuria - Menstruation Menstruation: Reports postmenopausal - Musculoskeletal Musculoskeletal: Reports myalgias - Integumentary Integumentary: Denies pruritus, Denies rash - Neurological Neurological: Denies numbness, Denies weakness - Psychiatric Psychiatric: Denies anxiety, Denies depression - Endocrine Endocrine: Reports weight change, Denies fatigue - Hematologic/Lymphatic Comment: none - Allergic/Immunologic Allergic/Immunologic: Reports as per HPI Past Medical History Additional Past Medical History / Comment(s): 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 No s/sx since. COPD History of Any Multi-Drug Resistant Organisms: None Reported Past Surgical History: Tonsillectomy Additional Past Surgical History / Comment(s): cyst removed right foot. Abcess removed from Right thumb april 2020 Past Psychological History: No Psychological Hx Reported Smoking Status: Current every day smoker Past Alcohol Use History: Rare Past Drug Use History: None Reported - Past Family History Father Family Medical History: Unable to Obtain Mother Family Medical History: Diabetes Mellitus Additional Family Medical History / Comment(s): heart disease, HTN, CKD Objective - Vital Signs Vital signs: Vital Signs Temp 98.0 F 12/21/21 10:43 Pulse 73 12/21/21 10:43 Resp 16 12/21/21 10:43 BP 155/69 12/21/21 10:43 Pulse Ox 100 12/21/21 10:43 FiO2 Intake & Output 12/20/21 12/21/21 12/21/21 18:59 06:59 18:59 Weight 85.275 kg - Exam BMI: 29.4 - Constitutional General appearance: Present: cooperative - EENT Eyes: Present: EOMI ENT: Present: hearing grossly normal - Neck Neck: Present: normal ROM - Respiratory Respiratory: bilateral: CTA - Cardiovascular Heart sounds: normal: S1, S2 - Gastrointestinal General gastrointestinal: Present: soft - Integumentary Integumentary: Present: normal turgor - Musculoskeletal Musculoskeletal: Present: gait normal - Psychiatric Psychiatric: Present: A&O x's 3, appropriate affect, intact judgment & insight - Additional findings Additional findings: Breast Exam: BRA: 42C inspection: grade 3 ptosis palpation: right breast: Multi-positional exam fibrocystic changes no dominant masses or nodules of concern Right axilla: No adenopathy of concern Left breast: Slightly smaller than right breast, nipple inversion from a breast abscess and surgery, no dominant masses or nodules of concern Left axilla: No adenopathy of concern Assessment and Plan Assessment: Impression: Fibrocystic breast changes Asymmetry of the breast secondary to chronic abscess prior in the left breast with resection, no evidence of recurrence Nothing which would warrant interventional biopsy on examination or mammogram Repeat bilateral mammogram in 1 year with physician exam at that time We have discussed hormone this breast risk reduction for cancer and patient has declined Cc: Dr. Jose R Johnston
== END | disposition home or self-care (01) ==
LOC: WWCWWP 10:37
PROVIDERS: ATTEND Surgery
DX: Z53.9 Procedure and treatment not carried out, unspecified reason (principal)

== ENCOUNTER → 2022-05-06 | Outpatient (CLI) | payer OTHER ==
[2022-05-06 14:37] LABS: Basophils # (A) 0.13 X 10*3/uL (0.00-0.10); Basophils % (A) 1.2 %; Eosinophils # (A) 0.35 X 10*3/uL (0.04-0.35); Eosinophils % (A) 3.3 %; HCT 37.3 % (37.2-46.3); HGB 11.9 g/dL (12.0-15.0); Immature Grans, Automated 0.3 %; Lymphocytes # (A) 2.91 X 10*3/uL (0.90-5.00); Lymphocytes % (A) 27.2 %; MCHC 31.9 g/dL (32.0-37.0); MCV 97.1 fL (80.0-97.0); Mean Platelet Volume 9.8 fL (9.5-12.2); Monocytes # (A) 0.65 X 10*3/uL (0.20-1.00); Monocytes % (A) 6.1 %; NRBC Per 100 WBC 0 /100 WBCS (0.0-0.0); Neutrophils # (A) 6.64 X 10*3/uL (1.80-7.70); Neutrophils % (A) 61.9 %; Platelet Count 319 X 10*3/uL (140-440); RBC 3.84 X 10*6/uL (4.10-5.20); RDW 13.4 % (11.5-14.5); WBC 10.71 X 10*3/uL (4.50-10.00)
[2022-05-06 16:04] LABS: ALT 11 U/L (8-44); AST 11 U/L (13-35); African American GFR (CKD) 61.8 (60.0-200.0); Albumin 4.3 g/dL (3.8-4.9); Albumin/Globulin Ratio 1.62 (1.60-3.17); Alkaline Phosphatase 101 U/L (41-126); BUN/Creat Ratio 31.61 Ratio (12.00-20.00); Blood Urea Nitrogen 35.4 mg/dL (9.0-27.0); Calcium 10.1 mg/dL (8.7-10.3); Carbon Dioxide 24.5 mmol/L (20.0-27.5); Chloride 107 mmol/L (96-109); Chol/HDL Ratio 3.05 Ratio; Globulin 2.7 g/dL (1.6-3.3); Glucose 106 mg/dL (70-110); LDL Cholesterol,Calculated 120.4 mg/dL (0.0-131.0); Non-African American GFR(CKD) 53.4 (60.0-200.0); Sodium 140 mmol/L (135-145); VLDL Calculation 17.28 mg/dL (5.00-40.00)
[2022-05-06 18:25] LABS: HIV 2 AB Non-Reactive (Non-Reactive); HIV AB P24 Non-Reactive (Non-Reactive); HIV P24 AG Non-Reactive (Non-Reactive)
== END | disposition home or self-care (01) ==
LOC: LABWHC1 10:01
PROVIDERS: ATTEND Family Medicine
DX: Z11.4 Encounter for screening for human immunodeficiency virus [HIV] (principal); E78.5 Hyperlipidemia, unspecified
CPT/HCPCS: 36415; 80053; 80061; 84443; 85025; 87390

== ENCOUNTER → 2022-12-18 | Outpatient (CLI) | payer OTHER ==
--- NOTE | 2022-12-18 09:17 | MM ---
Reason for Exam: Screening (asymptomatic). Last mammogram was performed 1 year(s) and 1 month(s) ago. Patient History: Menarche at age 15. First Full-Term at age 28. Postmenopausal. 12/13/2020, Benign Core Biopsy on the left side. Risk Values: Fang 5 year model risk: 1.9%. NCI Lifetime model risk: 9.5%. Prior Study Comparison: 11/22/2020 Left Diagnostic Mammogram, [facility]. 12/13/2020 Left Diagnostic Mammogram, [facility]. 12/17/2021 Bilateral MG 3D diag mammo w/cad [facility], [facility]. Tissue Density: There are scattered fibroglandular densities. Findings: Analyzed By CAD. There is no suspicious group of microcalcifications or new suspicious mass. Overall Assessment: Negative, BI-RAD 1 Management: Screening Mammogram of both breasts in [address] [facility] will attempt to contact patient to return for supplemental views and ultrasound if indicated. Patient should continue monthly self-breast exams. A clinical breast exam by your physician is recommended on an annual basis. This exam should not preclude additional follow-up of suspicious palpable abnormalities. Note on Fang scores and lifetime risk: 1. A Fang score greater than 3% is considered moderate risk. If this is the case, consider specialist referral to assess eligibility for a risk reducing agent. 2. If overall lifetime risk for the development of breast cancer is 20% or higher, the patient may qualify for future screening with alternating mammogram and breast MRI. Electronically signed and approved by: Jeff Ramires DO
== END | disposition home or self-care (01) ==
LOC: RADMAMWWP 08:52
PROVIDERS: ATTEND Surgery
DX: Z12.31 Encounter for screening mammogram for malignant neoplasm of breast (principal); Z78.0 Asymptomatic menopausal state
CPT/HCPCS: 77063; 77067

== ENCOUNTER → 2023-02-07 | Outpatient (CLI) | payer OTHER ==
[2023-02-07 09:40] VITALS: BP 154/74; PULSE 54; RESP 18; TEMP 98.1
--- NOTE | 2023-02-07 09:59 | P.PN ---
Subjective Progress Note Date: 02/07/23 Principal diagnosis: Fibrocystic breast changes fibrocystic breast changes Cassandra is a 61-year-old white female seen in consultation for Dr. Jose R Johnston initially regarding an inverted left nipple and left nipple discharge. She underwent bilateral mammogram on . No discrete abnormality was noted but focal asymmetry in the subareolar left breast was identified. The patient then underwent a left breast ultrasound on the same day. This revealed a 0.7 cm hypoechoic lesion at the nipple, so 0.4 cm hypoechoic lesion at the nipple, and a 0.9 cm lesion at the nipple. The patient states she feels nodularity of her left nipple area. It is also tender at times. She does not complain of any trauma to her breast. She has not had any recent infection in her breast. She's never had any surgery on her breast. She had excision of the nodules on 12-08-20; this revealed a chronic abscess. She had a bilateral mammogram on 12-17-21 which was BIRAD 2. She is not complaining of any new lumps masses or nodules of concern in either breast. Risk assessment reveals a five-year risk of 1.8%, she has declined hormone intervention screw reduction. 02-07-23 Cassandra has a history of fibrocystic breast changes. She is status post excision of nodules on 1019 in her left breast. This revealed chronic abscesses. She had a bilateral mammogram performed on which was BIRADS 1. A complain of any new lumps masses or nodules of concern in either breast. Caffeine: 1 cup/day nicotine: 1PPD/45 years chocolate: rare Family History: paternal aunt: breast cancer Hormonal History: menarche: 16 , breast fed: no, age at : 28 menopause: 50 BCP: none hormones: none Surgical history: abscess right thumb right foot cyst removed tonsillectomy Medical History: HTN COPD Cataract left eye Social history: Nicotine: One pack per day for 45 years Alcohol: Drugs: Negative - Constitutional Constitutional: Denies chills, Denies fever - EENT Eyes: bilateral blurred vision (cataract left eye), denies pain Ears: deny: decreased hearing, tinnitus Ears, nose, mouth and throat: Reports headache, Denies sore throat - Breasts Breasts: bilateral: as per HPI - Cardiovascular Cardiovascular: Denies chest pain, Denies shortness of breath - Respiratory Comment: COPD - Gastrointestinal Gastrointestinal: Denies abdominal pain, Denies diarrhea, Denies nausea, Denies vomiting - Genitourinary (Female) Genitourinary: Denies dysuria, Denies hematuria - Menstruation Menstruation: Reports postmenopausal - Musculoskeletal Musculoskeletal: Reports myalgias - Integumentary Integumentary: Denies pruritus, Denies rash - Neurological Neurological: Denies numbness, Denies weakness - Psychiatric Psychiatric: Denies anxiety, Denies depression - Endocrine Endocrine: Reports weight change, Denies fatigue - Hematologic/Lymphatic Comment: none - Allergic/Immunologic Allergic/Immunologic: Reports as per HPI Past Medical History Additional Past Medical History / Comment(s): 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 No s/sx since. COPD History of Any Multi-Drug Resistant Organisms: None Reported Past Surgical History: Tonsillectomy Additional Past Surgical History / Comment(s): cyst removed right foot. Abcess removed from Right thumb april 2020 Past Psychological History: No Psychological Hx Reported Smoking Status: Current every day smoker Past Alcohol Use History: Rare Past Drug Use History: None Reported - Past Family History Father Family Medical History: Unable to Obtain Mother Family Medical History: Diabetes Mellitus Additional Family Medical History / Comment(s): heart disease, HTN, CKD Objective - Vital Signs Vital signs: Vital Signs Temp 98.1 F 02/07/23 09:26 Pulse 54 L 02/07/23 09:26 Resp 18 02/07/23 09:26 BP 154/74 02/07/23 09:26 Pulse Ox 97 02/07/23 09:26 FiO2 Intake & Output 02/06/23 02/07/23 02/07/23 18:59 06:59 18:59 Weight 81.647 kg - Constitutional General appearance: Present: cooperative - EENT Eyes: Present: EOMI - Neck Neck: Present: normal ROM - Respiratory Respiratory: bilateral: CTA - Cardiovascular Heart sounds: normal: S1, S2 - Integumentary Integumentary: Present: normal turgor - Musculoskeletal Musculoskeletal: Present: gait normal - Psychiatric Psychiatric: Present: A&O x's 3, appropriate affect, intact judgment & insight - Additional findings Additional findings: Breast Exam: BRA: 42C inspection: grade 3 ptosis palpation: right breast: Multi-positional exam fibrocystic changes no dominant masses or nodules of concern Right axilla: No adenopathy of concern Left breast: Slightly smaller than right breast, nipple inversion from a breast abscess and surgery, no dominant masses or nodules of concern Left axilla: No adenopathy of concern [place] fungal infection under both breast Assessment and Plan Assessment: Impression: Fibrocystic breast changes Asymmetry of the breast secondary to chronic abscess prior in the left breast with resection, no evidence of recurrence Nothing which would warrant interventional biopsy on examination or mammogram Bilateral mammogram on 12-18-22 BIRAD Repeat bilateral mammogram in 1 year with physician exam at that time nystatin to fungal infecgtion as needed We have discussed hormone this breast risk reduction for cancer and patient has declined Cc: Dr. Jose R Johnston
== END ==
LOC: WWCWWP 08:56
PROVIDERS: ATTEND Surgery
DX: Z12.31 Encounter for screening mammogram for malignant neoplasm of breast (principal); N60.11 Diffuse cystic mastopathy of right breast; N60.12 Diffuse cystic mastopathy of left breast; A15.9 Respiratory tuberculosis unspecified; J44.9 Chronic obstructive pulmonary disease, unspecified; I10 Essential (primary) hypertension; N64.52 Nipple discharge; N64.89 Other specified disorders of breast; F17.200 Nicotine dependence, unspecified, uncomplicated; Z80.3 Family history of malignant neoplasm of breast

== ENCOUNTER → 2023-12-23 | Outpatient (CLI) | payer OTHER ==
--- NOTE | 2023-12-23 09:22 | MM ---
Reason for Exam: Screening (asymptomatic). Last screening mammogram was performed 12 month(s) ago. Patient History: Menarche at age 15. First Full-Term at age 28. Postmenopausal. 12/13/2020, Benign Core Biopsy on the left side. Risk Values: Fang 5 year model risk: 1.9%. NCI Lifetime model risk: 9.3%. Prior Study Comparison: 12/13/2020 Left Diagnostic Mammogram, [facility]. 12/17/2021 Bilateral MG 3D diag mammo w/cad [facility], [facility]. 12/18/2022 Bilateral MG 3D screening mammo w/cad, [facility]. Tissue Density: The breasts are heterogeneously dense, which may obscure small masses. Findings: Analyzed By CAD. There is no suspicious group of microcalcifications or new suspicious mass in either breast. Overall Assessment: Benign, BI-RAD 2 Management: Screening Mammogram of both breasts in 1 year. . Patient should continue monthly self-breast exams. A clinical breast exam by your physician is recommended on an annual basis. This exam should not preclude additional follow-up of suspicious palpable abnormalities. Note on Fang scores and lifetime risk: 1. A Fang score greater than 3% is considered moderate risk. If this is the case, consider specialist referral to assess eligibility for a risk reducing agent. 2. If overall lifetime risk for the development of breast cancer is 20% or higher, the patient may qualify for future screening with alternating mammogram and breast MRI. [facility], , 12/23/2023 9:19 AM. Electronically signed and approved by: Mayito Benton M.D. Radiologis
== END | disposition home or self-care (01) ==
LOC: RADMAMWWP 08:22
PROVIDERS: ATTEND Surgery
DX: Z12.31 Encounter for screening mammogram for malignant neoplasm of breast (principal); Z78.0 Asymptomatic menopausal state; R92.333 Mammographic heterogeneous density, bilateral breasts
CPT/HCPCS: 77063; 77067